=== PATIENT | female | born 1955 | race Caucasian/White ===

== ENCOUNTER 2020-01-08 21:08 | Inpatient (IN) ==
[2020-01-08] MEDS ORDERED: Naloxone 0.4 MG/ML INJ IVP PRN (23:37)
[2020-01-08] MEDS ORDERED: *HR* Heparin 5,000 UNIT/ML VIAL IVP PRN (23:39)
[2020-01-09 00:32] LABS: INR 0.9; Prothrombin Time 10.6 Seconds (9.4-12.1)
[2020-01-09 00:38] LABS: Basophils % 0.1 %; Eosinophils # 0.1 K/mcL (0.0-0.6); Eosinophils % 1.4 %; Hematocrit 40.8 % (35.3-44.9); Hemoglobin 12.9 g/dL (11.5-15.4); Immature Granulocytes % 0.2 % (0-4); Lymphocytes # 2.9 K/mcL (0.6-4.6); Lymphocytes % 33.9 %; Mean Corpuscular HGB Conc 31.6 g/dL (31.6-35.5); Mean Corpuscular Hemoglobin 28.9 pg (28.0-33.3); Mean Corpuscular Volume 91.3 fL (83.0-100.0); Mean Platelet Volume 11.8 fL (9.4-12.4); Monocytes # 0.5 K/mcL (0.0-1.3); Monocytes % 6.2 %; Platelet Count 188 K/mcL (140-400); Red Blood Count 4.47 M/mcL (3.82-4.97); Red Cell Distribution Width 13.3 % (11.5-14.5); Segmented Neutrophils % 58.2 %; White Blood Count 8.6 K/mcL (4.3-11.1)
[2020-01-09] MEDS: Heparin 25,000 UNIT/250 ML D5W 25,000 UNIT/250 ML IV.SOLN IVC SCH ×2 (00:39→23:28)
[2020-01-09 00:46] LABS: BUN/Creatinine Ratio 30 (6-26); Blood Urea Nitrogen 29 mg/dL (8-23); Calcium 9.2 mg/dL (8.6-10.3); Carbon Dioxide 27 mEq/L (23-29); Chloride 106 mEq/L (98-107); Glucose 117 mg/dL (70-105); Magnesium 1.9 mg/dL (1.6-2.6); Osmolality,Calculated 299 (280-300); Potassium 3.6 mEq/L (3.5-5.1); Sodium 141 mEq/L (136-145); eGFR For African Americans > 60 (> 60); eGFR For Non-African Americans 57 (> 60)
[2020-01-09] MEDS ORDERED: Acetaminophen IV 500 MG/50 ML INFUS..BTL IVPB ONE (01:45)
[2020-01-09] MEDS: *HR* Heparin 5,000 UNIT/ML VIAL IVP PRN ×2 (06:49→21:09)
[2020-01-09 08:29] LABS: Estimated Average Glucose 123 mg/dl
[2020-01-09] MEDS ORDERED: allopurinoL 100 MG TABLET PO PRN (09:00)
[2020-01-09] MEDS ORDERED: Furosemide 20 MG TABLET PO SCH (09:00)
[2020-01-09] MEDS: Aspirin Enteric Coated 81 MG Tablet PO SCH (09:28)
[2020-01-09] MEDS: Nicotine 7 MG PATCH.TD24 TD SCH (09:34)
[2020-01-09] MEDS: Cholecalciferol (D-3) 1,000 UNIT (25MCG) TABLET PO SCH (09:37)
[2020-01-09] MEDS ORDERED: Heparin 1,000 UNITS/500 mL 500 ML ONE (12:26)
[2020-01-09] MEDS ORDERED: ISOVUE-370 200 ML INFUS..BTL ONE ×2 (12:26→12:36)
[2020-01-09] MEDS ORDERED: Nitroglycerin 1,000 MCG/10 ML VIAL IV ONE (12:26)
[2020-01-09] MEDS ORDERED: *HR* Heparin 10,000 UNIT/10 ML VIAL ONE (12:26)
[2020-01-09] MEDS ORDERED: 0.9 % Sodium Chloride 2,000 ML ONE (12:26)
[2020-01-09] MEDS ORDERED: *HR* Midazolam HCl 2 MG/2 ML VIAL ONE (12:36)
[2020-01-09] MEDS ORDERED: Acetaminophen 325 MG TABLET PO PRN (13:38)
[2020-01-09] MEDS ORDERED: Clindamycin 900 MG/50 ML 900 MG/50 ML IV.SOLN IVPB ONE (15:41)
[2020-01-09] MEDS ORDERED: Perflutren Lipid Microsphere 1.3 ML in 0.9 % Sodium Chloride 8.7 ML IVP ONE (16:11)
[2020-01-09 16:22] LABS: Chol/HDL Ratio 4.2 (0-4.9)
[2020-01-09 18:21] LABS: Bilirubin,Urine Negative (Negative); Blood,Urine Negative (Negative); Clarity,Urine Clear (Clear); Color,Urine Yellow (Yellow); Glucose,Urine (UA) Normal (Normal); Ketones,Urine Negative (Negative); Leukocyte Esterase,Urine Negative (Negative); Nitrite,Urine Negative (Negative); Protein,Urine Negative (Neg-Trace); Specific Gravity,Urine > 1.030 (1.010-1.025); Urobilinogen,Urine Normal (Normal)
[2020-01-09] MEDS: Chlorhexidine Rinse 15 ML MOUTHWASH MM SCH (21:08)
[2020-01-10] MEDS ORDERED: Norepinephrine 4 MG in 0.9 % Sodium Chloride 250 ML IVC PRN (02:00)
[2020-01-10] MEDS ORDERED: Dextrose 50 % in Water (Vial) 30 ML, Sodium Bicarbonate 20 MEQ, Potassium Chloride 15 M... TH ONE (02:00)
[2020-01-10] MEDS ORDERED: Insulin Human Regular 100 UNIT in 0.9 % Sodium Chloride 100 ML IV PRN (02:00)
[2020-01-10] MEDS ORDERED: Dextrose 50 % in Water (Vial) 30 ML, Sodium Bicarbonate 20 MEQ, Lidocaine 1% 5 ML, Insu... TH ONE ×3 (02:00)
[2020-01-10] MEDS ORDERED: Heparin 15,000 UNIT in 0.9 % Sodium Chloride 500 ML IV ONE (02:00)
[2020-01-10 03:41] LABS: Hemoglobin 12.8 g/dL (11.5-15.4); Mean Corpuscular HGB Conc 31.2 g/dL (31.6-35.5); Mean Corpuscular Hemoglobin 29.3 pg (28.0-33.3); Mean Corpuscular Volume 93.8 fL (83.0-100.0); Mean Platelet Volume 11.8 fL (9.4-12.4); Platelet Count 173 K/mcL (140-400); Red Blood Count 4.37 M/mcL (3.82-4.97); Red Cell Distribution Width 13.3 % (11.5-14.5); White Blood Count 7.2 K/mcL (4.3-11.1)
[2020-01-10 04:00] LABS: BUN/Creatinine Ratio 28 (6-26); Blood Urea Nitrogen 22 mg/dL (8-23); Calcium 9.2 mg/dL (8.6-10.3); Carbon Dioxide 26 mEq/L (23-29); Chloride 108 mEq/L (98-107); Glucose 109 mg/dL (70-105); Osmolality,Calculated 298 (280-300); Potassium 3.8 mEq/L (3.5-5.1); Sodium 142 mEq/L (136-145); eGFR For African Americans > 60 (> 60); eGFR For Non-African Americans > 60 (> 60)
[2020-01-10] MEDS ORDERED: Clindamycin 900 MG/50 ML 900 MG/50 ML IV.SOLN IVPB ONE (05:00)
[2020-01-10] MEDS: Chlorhexidine Rinse 15 ML MOUTHWASH MM SCH ×2 (06:36→19:20)
[2020-01-10] MEDS ORDERED: NiCARdipine 2.5 MG/10 ML Syringe IVPB ONE ×2 (06:39→10:08)
[2020-01-10] MEDS ORDERED: *HR* Rocuronium Bromide 50 MG/5 ML VIAL ONE (06:45)
[2020-01-10] MEDS ORDERED: *HR* FentaNYL (PF) 1,000 MCG/20 ML VIAL ONE (06:45)
[2020-01-10] MEDS ORDERED: *HR* Midazolam HCl 5 MG/5 ML VIAL IVP ONE (06:45)
[2020-01-10] MEDS ORDERED: *HR* PHENYLEPHRINE 1,000 MCG/10 ML SYRINGE IVP ONE ×2 (06:45→10:48)
[2020-01-10] MEDS ORDERED: *HR* Etomidate 20 MG/10 ML AMPUL IVP ONE (06:48)
[2020-01-10] MEDS ORDERED: Famotidine 20 MG/2 ML VIAL ONE (06:48)
[2020-01-10] MEDS ORDERED: Protamine Sulfate 250 MG/25 ML VIAL IVP ONE (06:50)
[2020-01-10] MEDS ORDERED: Tranexamic Acid 1,000 MG/10 ML VIAL ONE ×2 (06:50→09:14)
[2020-01-10] MEDS ORDERED: Calcium Gluconate 1,000 MG/10 ML VIAL ONE (06:50)
[2020-01-10 08:13] LABS: ABG Base Excess 2 mEq/L (-2 to 3); ABG Chloride 107 mEq/L (98-107); ABG Glucose 107 mg/dL (60-95); ABG HCO3 29 mEq/L (21-27); ABG Ionized Calcium 1.26 mmol/L (1.15-1.35); ABG Oxygen Saturation 98 % (95-98); ABG PCO2 55 mmHg (35-45); ABG PH 7.33 pH Units (7.32-7.45); ABG PO2 108 mmHg (85-104); ABG TCO2 31 mEq/L (20-26)
[2020-01-10] MEDS ORDERED: *HR* Magnesium Sulfate 2 GM/50 ML PIGGYBACK IVPB ONE (09:19)
[2020-01-10] MEDS ORDERED: Lidocaine 2% Syringe 100 MG/5 ML IV ONE (09:19)
[2020-01-10] MEDS ORDERED: Tranexamic Acid 1,000 MG/10 ML VIAL IVP ONE (09:19)
[2020-01-10] MEDS ORDERED: Mannitol 25% vial 12.5 GM/50 ML VIAL IVP ONE (09:19)
[2020-01-10] MEDS ORDERED: *HR* Phenylephrine 10 MG/ML VIAL IVC ONE (09:19)
[2020-01-10] MEDS ORDERED: Albumin Human 25% 25 GM/100 ML IV.SOLN IV ONE (09:19)
[2020-01-10] MEDS ORDERED: *HR* Heparin 10,000 UNIT/10 ML VIAL IV ONE (09:19)
[2020-01-10 09:23] LABS: ABG Base Excess 0 mEq/L (-2 to 3); ABG Chloride 105 mEq/L (98-107); ABG Glucose 141 mg/dL (60-95); ABG HCO3 27 mEq/L (21-27); ABG Ionized Calcium 1.16 mmol/L (1.15-1.35); ABG Oxygen Saturation 91 % (95-98); ABG PCO2 52 mmHg (35-45); ABG PH 7.33 pH Units (7.32-7.45); ABG PO2 67 mmHg (85-104); ABG TCO2 29 mEq/L (20-26)
[2020-01-10 10:28] LABS: ABG Base Excess 3 mEq/L (-2 to 3); ABG Chloride 100 mEq/L (98-107); ABG Glucose 133 mg/dL (60-95); ABG HCO3 28 mEq/L (21-27); ABG Ionized Calcium 1.07 mmol/L (1.15-1.35); ABG Oxygen Saturation 100 % (95-98); ABG PCO2 43 mmHg (35-45); ABG PH 7.42 pH Units (7.32-7.45); ABG PO2 540 mmHg (85-104); ABG TCO2 30 mEq/L (20-26)
[2020-01-10] MEDS ORDERED: Albumin Human 5% 12.5 GM/250 ML IV.SOLN ONE (10:47)
[2020-01-10 11:02] LABS: ABG Base Excess -4 mEq/L (-2 to 3); ABG Chloride 103 mEq/L (98-107); ABG Glucose 95 mg/dL (60-95); ABG HCO3 24 mEq/L (21-27); ABG Ionized Calcium 1.35 mmol/L (1.15-1.35); ABG Oxygen Saturation 93 % (95-98); ABG PCO2 53 mmHg (35-45); ABG PH 7.26 pH Units (7.32-7.45); ABG PO2 77 mmHg (85-104); ABG TCO2 25 mEq/L (20-26)
[2020-01-10] MEDS ORDERED: Ondansetron 4 MG/2 ML VIAL IVP PRN (11:24)
[2020-01-10] MEDS ORDERED: *HR* Dextrose 50 % in Water (Syg) 50 ML SYRINGE IVP PRN (11:24)
[2020-01-10] MEDS ORDERED: Insulin Regular, Human 100 UNIT/ML IV PRN (11:24)
[2020-01-10] MEDS ORDERED: *HR* Promethazine 25 MG/ML VIAL IVP PRN (11:24)
[2020-01-10] MEDS: Norepinephrine 4 MG in 0.9 % Sodium Chloride 250 ML IVC SCH (11:30)
[2020-01-10] MEDS ORDERED: Albumin Human 5% 50.0 GM/1,000 ML IV.SOLN ONE (11:38)
[2020-01-10] MEDS: Albumin Human 5% 12.5 GM/250 ML IV.SOLN IVPB PRN ×2 (11:40→12:25)
[2020-01-10 11:54] LABS: ABG Base Excess -1 mEq/L (-2 to 3); ABG HCO3 26 mEq/L (21-27); ABG Oxygen Saturation 99 % (95-98); ABG PCO2 54 mmHg (35-45); ABG PO2 140 mmHg (85-104); ABG TCO2 28 mEq/L (20-26); Blood Gas Modality ASSIST CONTROL; Blood Gas VT 600 cc
[2020-01-10] MEDS ORDERED: niCARdipine 40 MG/200 ML MLS IVC ONE (12:11)
[2020-01-10 12:14] LABS: Basophils % 0.1 %; Eosinophils # 0.2 K/mcL (0.0-0.6); Eosinophils % 1.1 %; Hematocrit 32.9 % (35.3-44.9); Immature Granulocytes % 0.9 % (0-4); Lymphocytes # 2.4 K/mcL (0.6-4.6); Lymphocytes % 14.9 %; Mean Corpuscular Hemoglobin 29.7 pg (28.0-33.3); Mean Corpuscular Volume 95.6 fL (83.0-100.0); Mean Platelet Volume 11.5 fL (9.4-12.4); Monocytes # 1.1 K/mcL (0.0-1.3); Monocytes % 6.7 %; Neutrophils # 12.3 K/mcL (1.6-8.9); Platelet Count 150 K/mcL (140-400); Red Blood Count 3.44 M/mcL (3.82-4.97); Red Cell Distribution Width 13.2 % (11.5-14.5); Segmented Neutrophils % 76.3 %
[2020-01-10 12:21] LABS: Hemoglobin 10.2 g/dL (11.5-15.4)
[2020-01-10 12:22] LABS: INR 1.2
[2020-01-10 12:24] LABS: White Blood Count 16.1 K/mcL (4.3-11.1)
[2020-01-10 12:25] LABS: Activated Partial Thrombo Time 28.4 Seconds (26.0-36.0)
[2020-01-10 12:28] LABS: Prothrombin Time 13.4 Seconds (9.4-12.1)
[2020-01-10 12:31] LABS: BUN/Creatinine Ratio 22 (6-26); Blood Urea Nitrogen 19 mg/dL (8-23); Calcium 8.6 mg/dL (8.6-10.3); Carbon Dioxide 27 mEq/L (23-29); Chloride 109 mEq/L (98-107); Glucose 81 mg/dL (70-105); Magnesium 2.8 mg/dL (1.6-2.6); Osmolality,Calculated 297 (280-300); Potassium 4.1 mEq/L (3.5-5.1); Sodium 143 mEq/L (136-145); eGFR For African Americans > 60 (> 60); eGFR For Non-African Americans > 60 (> 60)
[2020-01-10] MEDS: *HR* FentaNYL (PF) 100 MCG/2 ML VIAL IVP PRN ×4 (12:44→21:36)
[2020-01-10] MEDS: *HR* OxyCODONE/APAP 5/325 TABLET PO PRN ×2 (12:44→18:38)
[2020-01-10] MEDS: Insulin Human Regular 100 UNIT in 0.9 % Sodium Chloride 100 ML IVC SCH (13:00)
[2020-01-10] MEDS: Furosemide 40 MG TABLET PO SCH (13:45)
[2020-01-10] MEDS: Aspirin Enteric Coated 81 MG Tablet PO SCH (13:45)
[2020-01-10] MEDS: Cholecalciferol (D-3) 1,000 UNIT (25MCG) TABLET PO SCH (13:45)
[2020-01-10] MEDS: Nicotine 7 MG PATCH.TD24 TD SCH (13:45)
[2020-01-10] MEDS: niCARdipine 20 MG/200 ML MLS IVC SCH ×4 (13:46→23:05)
[2020-01-10] MEDS: 0.9 % Sodium Chloride 1,000 ML IVC SCH (13:51)
[2020-01-10 14:58] LABS: ABG Base Excess 1 mEq/L (-2 to 3); ABG HCO3 27 mEq/L (21-27); ABG Oxygen Saturation 94 % (95-98); ABG PCO2 46 mmHg (35-45); ABG PH 7.37 pH Units (7.32-7.45); ABG PO2 75 mmHg (85-104); ABG TCO2 28 mEq/L (20-26); Blood Gas Modality ASSIST CONTROL; Blood Gas VT 600 cc
[2020-01-10] MEDS: Clindamycin 900 MG/50 ML 900 MG/50 ML IV.SOLN IVPB SCH (16:10)
[2020-01-10 19:55] LABS: ABG Base Excess 3 mEq/L (-2 to 3); ABG HCO3 28 mEq/L (21-27); ABG Oxygen Saturation 96 % (95-98); ABG PCO2 45 mmHg (35-45); ABG PO2 81 mmHg (85-104); ABG TCO2 29 mEq/L (20-26); Blood Gas Modality AF; Blood Gas VT 600 cc
[2020-01-10] MEDS: Dexmedetomidine HCl 400 MCG/100 ML MLS IVC SCH (22:11)
[2020-01-10 23:35] LABS: ABG Base Excess 2 mEq/L (-2 to 3); ABG HCO3 27 mEq/L (21-27); ABG Oxygen Saturation 95 % (95-98); ABG PCO2 43 mmHg (35-45); ABG PH 7.41 pH Units (7.32-7.45); ABG PO2 76 mmHg (85-104); ABG TCO2 28 mEq/L (20-26); Blood Gas Modality AF; Blood Gas VT 600 cc
[2020-01-11] MEDS: Clindamycin 900 MG/50 ML 900 MG/50 ML IV.SOLN IVPB SCH (00:06)
[2020-01-11] MEDS: *HR* OxyCODONE/APAP 5/325 TABLET PO PRN ×5 (00:06→22:20)
[2020-01-11] MEDS: *HR* FentaNYL (PF) 100 MCG/2 ML VIAL IVP PRN ×3 (02:57→22:36)
[2020-01-11 04:16] LABS: ABG Base Excess 3 mEq/L (-2 to 3); ABG HCO3 27 mEq/L (21-27); ABG Oxygen Saturation 89 % (95-98); ABG PCO2 39 mmHg (35-45); ABG PH 7.44 pH Units (7.32-7.45); ABG PO2 55 mmHg (85-104); ABG TCO2 28 mEq/L (20-26); Blood Gas Modality AF; Blood Gas VT 600 cc
[2020-01-11 04:20] LABS: Basophils % 0.1 %; Immature Granulocytes % 0.4 % (0-4); Lymphocytes % 12.5 %; Mean Corpuscular Hemoglobin 28.9 pg (28.0-33.3); Mean Corpuscular Volume 93.2 fL (83.0-100.0); Mean Platelet Volume 11.9 fL (9.4-12.4); Monocytes # 0.6 K/mcL (0.0-1.3); Monocytes % 8.3 %; Neutrophils # 6.1 K/mcL (1.6-8.9); Platelet Count 110 K/mcL (140-400); Red Blood Count 3.11 M/mcL (3.82-4.97); Red Cell Distribution Width 13.5 % (11.5-14.5); Segmented Neutrophils % 78.7 %
[2020-01-11] MEDS: 0.9 % Sodium Chloride 1,000 ML IVC SCH (04:22)
[2020-01-11 04:26] LABS: White Blood Count 7.7 K/mcL (4.3-11.1)
[2020-01-11 04:40] LABS: BUN/Creatinine Ratio 25 (6-26); Blood Urea Nitrogen 24 mg/dL (8-23); Calcium 8.3 mg/dL (8.6-10.3); Carbon Dioxide 26 mEq/L (23-29); Chloride 111 mEq/L (98-107); Glucose 124 mg/dL (70-105); Osmolality,Calculated 297 (280-300); Potassium 3.8 mEq/L (3.5-5.1); Sodium 141 mEq/L (136-145); eGFR For African Americans > 60 (> 60); eGFR For Non-African Americans 57 (> 60)
[2020-01-11] MEDS: niCARdipine 20 MG/200 ML MLS IVC SCH ×6 (05:16→19:54)
[2020-01-11] MEDS: Cholecalciferol (D-3) 1,000 UNIT (25MCG) TABLET PO SCH (07:33)
[2020-01-11] MEDS: Aspirin Enteric Coated 81 MG Tablet PO SCH (07:33)
[2020-01-11] MEDS: Dexmedetomidine HCl 400 MCG/100 ML MLS IVC SCH ×2 (07:37→23:12)
[2020-01-11] MEDS: Pantoprazole 40 MG VIAL IVP SCH (08:02)
[2020-01-11] MEDS: Chlorhexidine Rinse 15 ML MOUTHWASH MM SCH ×2 (08:02→19:30)
[2020-01-11] MEDS: Nicotine 7 MG PATCH.TD24 TD SCH (08:02)
[2020-01-11] MEDS: Furosemide 40 MG TABLET PO SCH (08:02)
[2020-01-11 08:03] LABS: ABG Base Excess 2 mEq/L (-2 to 3); ABG HCO3 26 mEq/L (21-27); ABG Oxygen Saturation 93 % (95-98); ABG PCO2 35 mmHg (35-45); ABG PH 7.48 pH Units (7.32-7.45); ABG PO2 63 mmHg (85-104); ABG TCO2 27 mEq/L (20-26); Blood Gas Modality ASSIST CONTROL; Blood Gas VT 600 cc
[2020-01-11] MEDS: Norepinephrine 4 MG in 0.9 % Sodium Chloride 250 ML IVC SCH (08:18)
[2020-01-11] MEDS ORDERED: Amiodarone Premix 360 MG/200 ML BAG IVC ONE (08:22)
[2020-01-11] MEDS ORDERED: Amiodarone Premix 150 MG/100 ML BAG IVPB ONE (08:22)
[2020-01-11] MEDS ORDERED: Furosemide 40 MG/4 ML VIAL IVP ONE (10:18)
[2020-01-11] MEDS: Insulin Human Regular 100 UNIT in 0.9 % Sodium Chloride 100 ML IVC SCH (11:50)
[2020-01-11] MEDS: Amiodarone Premix 360 MG/200 ML BAG IVC SCH (14:02)
[2020-01-11] MEDS: *HR* Heparin 5,000 UNIT/ML VIAL SQ SCH (17:01)
[2020-01-11 21:11] LABS: Hemoglobin 8.8 g/dL (11.5-15.4); Red Cell Distribution Width 13.7 % (11.5-14.5); Segmented Neutrophils % 79.3 %
[2020-01-11 21:13] LABS: Hematocrit 28.3 % (35.3-44.9); Immature Granulocytes % 0.5 % (0-4); Immature Platelets 6.9 % (1.1-6.1); Lymphocytes # 1.1 K/mcL (0.6-4.6); Lymphocytes % 11.5 %; Mean Corpuscular HGB Conc 31.1 g/dL (31.6-35.5); Mean Corpuscular Hemoglobin 29.2 pg (28.0-33.3); Monocytes # 0.8 K/mcL (0.0-1.3); Monocytes % 8.7 %; Neutrophils # 7.4 K/mcL (1.6-8.9); Red Blood Count 3.01 M/mcL (3.82-4.97); White Blood Count 9.3 K/mcL (4.3-11.1)
[2020-01-11 21:14] LABS: ABG Ionized Calcium 1.14 mmol/L (1.15-1.35)
[2020-01-11 21:14] LABS: Platelet Count 97 K/mcL (140-400)
[2020-01-11 21:31] LABS: Alanine Aminotransferase 11 Units/L (7-52); Albumin 3.4 g/dL (3.5-5.7); Albumin/Globulin Ratio 2.3 (1.1-2.2); Alkaline Phosphatase 45 Units/L (34-104); Aspartate Amino Transferase 27 Units/L (13-39); BUN/Creatinine Ratio 27 (6-26); Bilirubin,Total 0.4 mg/dL (0.3-1.0); Blood Urea Nitrogen 26 mg/dL (8-23); Calcium 8.3 mg/dL (8.6-10.3); Carbon Dioxide 24 mEq/L (23-29); Chloride 109 mEq/L (98-107); Globulin 1.5 g/dL (2.4-3.5); Glucose 131 mg/dL (70-105); Magnesium 2.2 mg/dL (1.6-2.6); Osmolality,Calculated 299 (280-300); Phosphorous 3.8 mg/dL (2.7-4.5); Potassium 3.4 mEq/L (3.5-5.1); Sodium 141 mEq/L (136-145); Total Protein 4.9 g/dL (6.4-8.9); eGFR For African Americans > 60 (> 60); eGFR For Non-African Americans 59 (> 60)
[2020-01-11] MEDS: Potassium Chloride 40 MEQ/200 ML BAG IVPB PRN ×2 (22:06→23:13)
[2020-01-11 22:11] LABS: ABG Base Excess 4 mEq/L (-2 to 3); ABG HCO3 28 mEq/L (21-27); ABG Oxygen Saturation 95 % (95-98); ABG PCO2 38 mmHg (35-45); ABG PH 7.46 pH Units (7.32-7.45); ABG PO2 69 mmHg (85-104); ABG TCO2 29 mEq/L (20-26); Blood Gas Modality AF; Blood Gas VT 460 cc
[2020-01-12] MEDS: Amiodarone Premix 360 MG/200 ML BAG IVC SCH (01:56)
[2020-01-12] MEDS ORDERED: Furosemide 40 MG/4 ML VIAL IVP ONE (02:41)
[2020-01-12] MEDS: niCARdipine 20 MG/200 ML MLS IVC SCH (02:43)
[2020-01-12] MEDS: *HR* FentaNYL (PF) 100 MCG/2 ML VIAL IVP PRN (02:52)
[2020-01-12] MEDS: Dexmedetomidine HCl 400 MCG/100 ML MLS IVC SCH ×2 (04:17→09:09)
[2020-01-12] MEDS: *HR* Heparin 5,000 UNIT/ML VIAL SQ SCH ×2 (04:17→17:02)
[2020-01-12 04:37] LABS: ABG Base Excess 3 mEq/L (-2 to 3); ABG HCO3 27 mEq/L (21-27); ABG Oxygen Saturation 93 % (95-98); ABG PCO2 40 mmHg (35-45); ABG PH 7.44 pH Units (7.32-7.45); ABG PO2 63 mmHg (85-104); ABG TCO2 29 mEq/L (20-26); Blood Gas Modality AF; Blood Gas VT 460 cc
[2020-01-12 04:43] LABS: Hemoglobin 8.7 g/dL (11.5-15.4); Red Cell Distribution Width 13.8 % (11.5-14.5)
[2020-01-12 04:45] LABS: Basophils % 0.1 %; Immature Granulocytes % 0.3 % (0-4); Immature Platelets 5.7 % (1.1-6.1); Lymphocytes # 0.9 K/mcL (0.6-4.6); Lymphocytes % 9.1 %; Mean Corpuscular HGB Conc 32.2 g/dL (31.6-35.5); Mean Corpuscular Hemoglobin 30.3 pg (28.0-33.3); Mean Corpuscular Volume 94.1 fL (83.0-100.0); Mean Platelet Volume 11.9 fL (9.4-12.4); Monocytes % 9.8 %; Neutrophils # 8.2 K/mcL (1.6-8.9); Red Blood Count 2.87 M/mcL (3.82-4.97); Segmented Neutrophils % 80.7 %; White Blood Count 10.1 K/mcL (4.3-11.1)
[2020-01-12 04:46] LABS: Platelet Count 96 K/mcL (140-400)
[2020-01-12 05:01] LABS: BUN/Creatinine Ratio 29 (6-26); Blood Urea Nitrogen 29 mg/dL (8-23); Calcium 8.6 mg/dL (8.6-10.3); Carbon Dioxide 26 mEq/L (23-29); Chloride 109 mEq/L (98-107); Glucose 134 mg/dL (70-105); Osmolality,Calculated 302 (280-300); Potassium 3.7 mEq/L (3.5-5.1); Sodium 142 mEq/L (136-145); eGFR For African Americans > 60 (> 60); eGFR For Non-African Americans 55 (> 60)
[2020-01-12] MEDS: Cholecalciferol (D-3) 1,000 UNIT (25MCG) TABLET PO SCH (07:16)
[2020-01-12] MEDS: Pantoprazole 40 MG VIAL IVP SCH (09:10)
[2020-01-12] MEDS: Nicotine 7 MG PATCH.TD24 TD SCH (09:10)
[2020-01-12] MEDS: Furosemide 40 MG TABLET PO SCH (09:10)
[2020-01-12] MEDS: Chlorhexidine Rinse 15 ML MOUTHWASH MM SCH (09:10)
[2020-01-12] MEDS: *HR* OxyCODONE/APAP 5/325 TABLET PO PRN ×3 (09:14→20:05)
[2020-01-12] MEDS ORDERED: *HR* Dextrose 50 % in Water (Syg) 50 ML SYRINGE IVP PRN (09:41)
[2020-01-12] MEDS ORDERED: Dextrose Gel 15 GM/37.5 ML TUBE PO PRN ×2 (09:41)
[2020-01-12] MEDS ORDERED: D5% in Water 1,000 ML IVC PRN (09:41)
[2020-01-12] MEDS ORDERED: *HR* Amiodarone 200 MG TABLET PO SCH (10:15)
[2020-01-12] MEDS: Insulin LISPRO 300 UNITS/3 ML VIAL SQ SCH ×3 (11:31→20:01)
[2020-01-12] MEDS: Budesonide/Formoterol 160/4.5 1 PUFF INH IH SCH ×2 (15:22→20:05)
[2020-01-12] MEDS: Norepinephrine 4 MG in 0.9 % Sodium Chloride 250 ML IVC SCH (20:00)
[2020-01-12] MEDS: Furosemide 20 MG/2 ML VIAL IVP SCH (20:05)
[2020-01-12] MEDS: *HR* Amiodarone 200 MG TABLET PO SCH (21:06)
[2020-01-13] MEDS: *HR* OxyCODONE/APAP 5/325 TABLET PO PRN (03:51)
[2020-01-13] MEDS: *HR* Heparin 5,000 UNIT/ML VIAL SQ SCH ×2 (05:17→16:49)
[2020-01-13 05:40] LABS: Basophils % 0.1 %; Eosinophils % 0.2 %; Hematocrit 31.6 % (35.3-44.9); Hemoglobin 9.7 g/dL (11.5-15.4); Immature Granulocytes % 0.4 % (0-4); Lymphocytes # 1.5 K/mcL (0.6-4.6); Lymphocytes % 13.1 %; Mean Corpuscular HGB Conc 30.7 g/dL (31.6-35.5); Mean Corpuscular Hemoglobin 29.3 pg (28.0-33.3); Mean Corpuscular Volume 95.5 fL (83.0-100.0); Mean Platelet Volume 12.4 fL (9.4-12.4); Monocytes % 8.7 %; Neutrophils # 9.1 K/mcL (1.6-8.9); Platelet Count 130 K/mcL (140-400); Red Blood Count 3.31 M/mcL (3.82-4.97); Red Cell Distribution Width 13.8 % (11.5-14.5); Segmented Neutrophils % 77.5 %; White Blood Count 11.8 K/mcL (4.3-11.1)
[2020-01-13 05:45] LABS: BUN/Creatinine Ratio 37 (6-26); Blood Urea Nitrogen 36 mg/dL (8-23); Calcium 8.6 mg/dL (8.6-10.3); Carbon Dioxide 25 mEq/L (23-29); Chloride 107 mEq/L (98-107); Glucose 127 mg/dL (70-105); Osmolality,Calculated 300 (280-300); Potassium 3.6 mEq/L (3.5-5.1); Sodium 140 mEq/L (136-145); eGFR For African Americans > 60 (> 60); eGFR For Non-African Americans 57 (> 60)
[2020-01-13] MEDS: Budesonide/Formoterol 160/4.5 1 PUFF INH IH SCH ×2 (07:21→19:39)
[2020-01-13] MEDS: Insulin LISPRO 300 UNITS/3 ML VIAL SQ SCH ×4 (08:12→20:54)
[2020-01-13] MEDS: Pantoprazole 40 MG VIAL IVP SCH (08:36)
[2020-01-13] MEDS: Cholecalciferol (D-3) 1,000 UNIT (25MCG) TABLET PO SCH (08:36)
[2020-01-13] MEDS: Nicotine 7 MG PATCH.TD24 TD SCH (08:36)
[2020-01-13] MEDS: Furosemide 20 MG/2 ML VIAL IVP SCH ×2 (08:36→21:30)
[2020-01-13] MEDS: *HR* Amiodarone 200 MG TABLET PO SCH (08:36)
[2020-01-13] MEDS ORDERED: *HR* Amiodarone 200 MG TABLET PO SCH (09:00)
[2020-01-13] MEDS ORDERED: *HR* Etomidate 20 MG/10 ML AMPUL IVP ONE (09:15)
[2020-01-13] MEDS ORDERED: *HR* Midazolam HCl 5 MG/5 ML VIAL IVP ONE ×2 (09:15→12:40)
[2020-01-13] MEDS ORDERED: *HR* Propofol 200 MG/20 ML VIAL IVP ONE (09:15)
[2020-01-13] MEDS ORDERED: Lidocaine 2% Syringe 100 MG/5 ML IV ONE (09:15)
[2020-01-13] MEDS ORDERED: *HR* FentaNYL (PF) 100 MCG/2 ML VIAL IVP ONE (11:18)
[2020-01-13] MEDS ORDERED: Lidocaine 2% Syringe 100 MG/5 ML ONE (11:21)
[2020-01-13] MEDS ORDERED: Artificial Tears SOLN 15 ML BOTTLE BOTH EYES PRN (11:40)
[2020-01-13] MEDS: Ipratropium/Albuterol Neb 3 ML IH SCH ×4 (11:45→23:13)
[2020-01-13] MEDS: Dexmedetomidine HCl 400 MCG/100 ML MLS IVC SCH ×3 (12:01→21:34)
[2020-01-13] MEDS: Norepinephrine 4 MG in 0.9 % Sodium Chloride 250 ML IVC SCH ×3 (12:02→21:46)
[2020-01-13 12:13] LABS: ABG Base Excess 6 mEq/L (-2 to 3); ABG HCO3 31 mEq/L (21-27); ABG Oxygen Saturation 86 % (95-98); ABG PCO2 47 mmHg (35-45); ABG PH 7.42 pH Units (7.32-7.45); ABG PO2 52 mmHg (85-104); ABG TCO2 32 mEq/L (20-26); Blood Gas Modality ASSIST CONTROL; Blood Gas VT 400 cc
[2020-01-13] MEDS: FentaNYL (PF) 1,000 MCG/100 ML IV.SOLN IVC SCH ×2 (12:19→20:29)
[2020-01-13] MEDS: Chlorhexidine Rinse 15 ML MOUTHWASH MM SCH ×2 (12:21→21:42)
[2020-01-13] MEDS: Artificial Tears SOLN 15 ML BOTTLE BOTH EYES SCH ×3 (12:21→21:31)
[2020-01-13] MEDS ORDERED: methylPREDNISolone 125 MG/2 ML VIAL IVP ONE (13:12)
[2020-01-13] MEDS ORDERED: Ringers Solution, Lactated 1,000 ML ONE (13:47)
[2020-01-13] MEDS ORDERED: Ringers Solution, Lactated 500 ML IVC ONE (14:00)
[2020-01-13 15:33] LABS: Appearance of Body Fluid Cloudy (Clear); Volume of Body Fluid 10 mL
[2020-01-13] MEDS: levoFLOXacin 750 MG/150 ML 750 MG/150 ML BAG IVPB SCH (15:40)
[2020-01-13] MEDS: Docusate Oral Soln 100 MG/10 ML UDC GTUBE SCH (21:30)
[2020-01-13 22:24] LABS: ABG Base Excess 1 mEq/L (-2 to 3); ABG HCO3 26 mEq/L (21-27); ABG Oxygen Saturation 85 % (95-98); ABG PCO2 40 mmHg (35-45); ABG PH 7.42 pH Units (7.32-7.45); ABG PO2 49 mmHg (85-104); ABG TCO2 27 mEq/L (20-26); Blood Gas Modality VC; Blood Gas VT 450 cc
[2020-01-13] MEDS ORDERED: *HR* Vecuronium 10 MG VIAL IVP ONE (23:06)
[2020-01-14] MEDS: Cisatracurium 200 MG in 0.9 % Sodium Chloride 180 ML IVC SCH ×2 (00:07→23:52)
[2020-01-14] MEDS: Artificial Tears SOLN 15 ML BOTTLE BOTH EYES SCH ×7 (00:12→23:53)
[2020-01-14] MEDS: Ipratropium/Albuterol Neb 3 ML IH SCH ×6 (03:26→23:18)
[2020-01-14] MEDS: FentaNYL (PF) 1,000 MCG/100 ML IV.SOLN IVC SCH ×2 (04:09→12:09)
[2020-01-14 04:27] LABS: ABG Base Excess 0 mEq/L (-2 to 3); ABG HCO3 29 mEq/L (21-27); ABG Oxygen Saturation 92 % (95-98); ABG PCO2 73 mmHg (35-45); ABG PH 7.21 pH Units (7.32-7.45); ABG PO2 79 mmHg (85-104); ABG TCO2 31 mEq/L (20-26); Blood Gas Modality VC; Blood Gas VT 450 cc
[2020-01-14] MEDS: Norepinephrine 4 MG in 0.9 % Sodium Chloride 250 ML IVC SCH (04:48)
[2020-01-14] MEDS: *HR* Heparin 5,000 UNIT/ML VIAL SQ SCH ×2 (05:28→17:36)
[2020-01-14 05:48] LABS: Hematocrit 31.3 % (35.3-44.9); Hemoglobin 9.7 g/dL (11.5-15.4); Immature Granulocytes % 0.7 % (0-4); Lymphocytes # 0.6 K/mcL (0.6-4.6); Lymphocytes % 4.2 %; Mean Corpuscular Hemoglobin 29.8 pg (28.0-33.3); Monocytes # 0.4 K/mcL (0.0-1.3); Monocytes % 2.7 %; Platelet Count 228 K/mcL (140-400); Red Blood Count 3.26 M/mcL (3.82-4.97); Red Cell Distribution Width 13.5 % (11.5-14.5); Segmented Neutrophils % 92.4 %
[2020-01-14 06:11] LABS: BUN/Creatinine Ratio 44 (6-26); Blood Urea Nitrogen 47 mg/dL (8-23); Calcium 8.6 mg/dL (8.6-10.3); Carbon Dioxide 25 mEq/L (23-29); Chloride 107 mEq/L (98-107); Glucose 174 mg/dL (70-105); Osmolality,Calculated 308 (280-300); Sodium 141 mEq/L (136-145); eGFR For African Americans > 60 (> 60); eGFR For Non-African Americans 52 (> 60)
[2020-01-14] MEDS: Budesonide/Formoterol 160/4.5 1 PUFF INH IH SCH ×2 (07:44→19:35)
[2020-01-14] MEDS: Insulin LISPRO 300 UNITS/3 ML VIAL SQ SCH ×4 (07:57→23:53)
[2020-01-14] MEDS: Aspirin 81 MG TAB.CHEW GTUBE SCH (08:05)
[2020-01-14] MEDS: Cholecalciferol (D-3) 1,000 UNIT (25MCG) TABLET PO SCH (08:05)
[2020-01-14] MEDS: methylPREDNISolone 125 MG/2 ML VIAL IVP SCH ×3 (08:06→23:57)
[2020-01-14] MEDS: Pantoprazole 40 MG VIAL IVP SCH (08:06)
[2020-01-14] MEDS: Chlorhexidine Rinse 15 ML MOUTHWASH MM SCH ×2 (08:06→19:53)
[2020-01-14] MEDS: Furosemide 20 MG/2 ML VIAL IVP SCH ×2 (08:06→19:54)
[2020-01-14] MEDS: Nicotine 7 MG PATCH.TD24 TD SCH (08:06)
[2020-01-14] MEDS: Docusate Oral Soln 100 MG/10 ML UDC GTUBE SCH ×2 (08:06→19:53)
[2020-01-14] MEDS: levoFLOXacin 750 MG/150 ML 750 MG/150 ML BAG IVPB SCH (08:07)
[2020-01-14] MEDS ORDERED: *HR* Vecuronium 10 MG VIAL IVP PRN (09:37)
[2020-01-14] MEDS ORDERED: Amiodarone Premix 360 MG/200 ML BAG IVC ONE (20:30)
[2020-01-14] MEDS: FentaNYL (PF) 2,500 MCG/50 ML IV.SOLN IVC SCH (20:47)
[2020-01-15] MEDS: Amiodarone Premix 360 MG/200 ML BAG IVC SCH ×2 (02:01→13:41)
[2020-01-15] MEDS: Ipratropium/Albuterol Neb 3 ML IH SCH ×6 (03:19→23:31)
[2020-01-15 04:28] LABS: ABG Base Excess 2 mEq/L (-2 to 3); ABG HCO3 28 mEq/L (21-27); ABG Oxygen Saturation 96 % (95-98); ABG PCO2 51 mmHg (35-45); ABG PH 7.35 pH Units (7.32-7.45); ABG PO2 86 mmHg (85-104); ABG TCO2 30 mEq/L (20-26); Blood Gas Modality ASSIST CONTROL; Blood Gas VT 450 cc
[2020-01-15] MEDS: Artificial Tears SOLN 15 ML BOTTLE BOTH EYES SCH ×6 (05:04→23:24)
[2020-01-15] MEDS: *HR* Heparin 5,000 UNIT/ML VIAL SQ SCH ×2 (05:04→17:00)
[2020-01-15] MEDS: Insulin LISPRO 300 UNITS/3 ML VIAL SQ SCH ×4 (05:59→23:24)
[2020-01-15 06:09] LABS: Basophils % 0.1 %; Hematocrit 26.9 % (35.3-44.9); Hemoglobin 8.2 g/dL (11.5-15.4); Immature Granulocytes % 0.6 % (0-4); Lymphocytes # 0.4 K/mcL (0.6-4.6); Lymphocytes % 3.4 %; Mean Corpuscular HGB Conc 30.5 g/dL (31.6-35.5); Mean Corpuscular Hemoglobin 29.3 pg (28.0-33.3); Mean Corpuscular Volume 96.1 fL (83.0-100.0); Mean Platelet Volume 11.5 fL (9.4-12.4); Monocytes # 0.6 K/mcL (0.0-1.3); Monocytes % 5.2 %; Neutrophils # 11.1 K/mcL (1.6-8.9); Platelet Count 179 K/mcL (140-400); Red Cell Distribution Width 13.6 % (11.5-14.5); Segmented Neutrophils % 90.7 %; White Blood Count 12.3 K/mcL (4.3-11.1)
[2020-01-15 06:30] LABS: Calcium 8.6 mg/dL (8.6-10.3); Potassium 3.5 mEq/L (3.5-5.1)
[2020-01-15] MEDS: FentaNYL (PF) 2,500 MCG/50 ML IV.SOLN IVC SCH ×2 (07:06→20:08)
[2020-01-15] MEDS: Budesonide/Formoterol 160/4.5 1 PUFF INH IH SCH ×2 (07:20→19:54)
[2020-01-15] MEDS: methylPREDNISolone 125 MG/2 ML VIAL IVP SCH ×2 (07:48→17:00)
[2020-01-15] MEDS: Pantoprazole 40 MG VIAL IVP SCH (07:48)
[2020-01-15] MEDS: Furosemide 20 MG/2 ML VIAL IVP SCH ×2 (07:49→20:08)
[2020-01-15] MEDS: Cholecalciferol (D-3) 1,000 UNIT (25MCG) TABLET PO SCH (07:49)
[2020-01-15] MEDS: Docusate Oral Soln 100 MG/10 ML UDC GTUBE SCH ×2 (07:49→20:08)
[2020-01-15] MEDS: Chlorhexidine Rinse 15 ML MOUTHWASH MM SCH ×2 (07:49→20:08)
[2020-01-15] MEDS: Aspirin 81 MG TAB.CHEW GTUBE SCH (07:49)
[2020-01-15] MEDS: levoFLOXacin 750 MG/150 ML 750 MG/150 ML BAG IVPB SCH (07:49)
[2020-01-15] MEDS: Nicotine 7 MG PATCH.TD24 TD SCH (07:50)
[2020-01-15] MEDS: Dexmedetomidine HCl 400 MCG/100 ML MLS IVC SCH (11:09)
[2020-01-15 14:21] LABS: Hematocrit 26.2 % (35.3-44.9)
[2020-01-16] MEDS: Amiodarone Premix 360 MG/200 ML BAG IVC SCH ×2 (00:50→12:49)
[2020-01-16] MEDS: Ipratropium/Albuterol Neb 3 ML IH SCH ×6 (03:14→23:25)
[2020-01-16] MEDS: Artificial Tears SOLN 15 ML BOTTLE BOTH EYES SCH ×6 (03:28→23:57)
[2020-01-16] MEDS: Dexmedetomidine HCl 400 MCG/100 ML MLS IVC SCH ×2 (03:28→20:21)
[2020-01-16 04:27] LABS: ABG Base Excess 3 mEq/L (-2 to 3); ABG HCO3 30 mEq/L (21-27); ABG Oxygen Saturation 87 % (95-98); ABG PCO2 59 mmHg (35-45); ABG PH 7.32 pH Units (7.32-7.45); ABG PO2 59 mmHg (85-104); ABG TCO2 32 mEq/L (20-26); Blood Gas Modality AF; Blood Gas VT 450 cc
[2020-01-16 05:16] LABS: Basophils % 0.1 %; Hemoglobin 8.3 g/dL (11.5-15.4); Immature Granulocytes % 0.7 % (0-4); Lymphocytes # 0.4 K/mcL (0.6-4.6); Lymphocytes % 2.8 %; Mean Corpuscular HGB Conc 30.7 g/dL (31.6-35.5); Mean Corpuscular Hemoglobin 29.7 pg (28.0-33.3); Mean Corpuscular Volume 96.8 fL (83.0-100.0); Mean Platelet Volume 11.1 fL (9.4-12.4); Monocytes # 1.3 K/mcL (0.0-1.3); Monocytes % 8.5 %; Neutrophils # 13.7 K/mcL (1.6-8.9); Platelet Count 200 K/mcL (140-400); Red Blood Count 2.79 M/mcL (3.82-4.97); Red Cell Distribution Width 13.6 % (11.5-14.5); Segmented Neutrophils % 87.9 %; White Blood Count 15.6 K/mcL (4.3-11.1)
[2020-01-16 05:35] LABS: Calcium 8.5 mg/dL (8.6-10.3); Potassium 3.8 mEq/L (3.5-5.1)
[2020-01-16] MEDS: methylPREDNISolone 125 MG/2 ML VIAL IVP SCH ×2 (06:26→18:05)
[2020-01-16] MEDS: *HR* Heparin 5,000 UNIT/ML VIAL SQ SCH ×2 (06:26→18:04)
[2020-01-16] MEDS: Insulin LISPRO 300 UNITS/3 ML VIAL SQ SCH ×3 (06:27→18:06)
[2020-01-16] MEDS: Budesonide/Formoterol 160/4.5 1 PUFF INH IH SCH ×2 (07:23→19:34)
[2020-01-16] MEDS: Norepinephrine 4 MG in 0.9 % Sodium Chloride 250 ML IVC SCH (08:00)
[2020-01-16] MEDS: Docusate Oral Soln 100 MG/10 ML UDC GTUBE SCH ×2 (08:09→20:25)
[2020-01-16] MEDS: Furosemide 40 MG/4 ML VIAL IVP SCH ×2 (08:09→20:26)
[2020-01-16] MEDS: Pantoprazole 40 MG VIAL IVP SCH (08:09)
[2020-01-16] MEDS: levoFLOXacin 750 MG/150 ML 750 MG/150 ML BAG IVPB SCH (08:09)
[2020-01-16] MEDS: Cholecalciferol (D-3) 1,000 UNIT (25MCG) TABLET PO SCH (08:10)
[2020-01-16] MEDS: Chlorhexidine Rinse 15 ML MOUTHWASH MM SCH ×2 (08:10→20:25)
[2020-01-16] MEDS: Aspirin 81 MG TAB.CHEW GTUBE SCH (08:10)
[2020-01-16] MEDS: Nicotine 7 MG PATCH.TD24 TD SCH (08:10)
[2020-01-16] MEDS: FentaNYL (PF) 2,500 MCG/50 ML IV.SOLN IVC SCH (11:09)
[2020-01-16] MEDS ORDERED: Bisacodyl 10 MG RECTAL SUPPOSITORY RC ONE (12:15)
[2020-01-16] MEDS ORDERED: Perflutren Lipid Microsphere 1.3 ML in 0.9 % Sodium Chloride 8.7 ML IVP ONE (13:18)
[2020-01-16] MEDS: Cefepime HCl 2,000 MG in Water for inj. (sterile) 20 ML IVP SCH ×2 (14:31→23:57)
[2020-01-16] MEDS: *HR* Amiodarone 200 MG TABLET PO SCH ×2 (14:31→20:26)
[2020-01-16] MEDS: Insulin DETEMIR 100 UNIT/ML X5UNITS SQ SCH (14:32)
[2020-01-16] MEDS ORDERED: *HR* Vecuronium 10 MG VIAL IVP ONE (17:08)
[2020-01-16 17:58] LABS: RBC,Pleural Fluid 17000 RBC/mcL
[2020-01-16 18:03] LABS: ABG Base Excess 5 mEq/L (-2 to 3); ABG HCO3 32 mEq/L (21-27); ABG Oxygen Saturation 95 % (95-98); ABG PCO2 59 mmHg (35-45); ABG PH 7.34 pH Units (7.32-7.45); ABG PO2 84 mmHg (85-104); ABG TCO2 34 mEq/L (20-26); Blood Gas Modality AF; Blood Gas VT 500 cc
[2020-01-16 18:19] LABS: Glucose,Pleural Fluid 147 mg/dL (No Ref Range); LDH,Pleural Fluid 487 Units/L (No Ref Range); Total Protein,Pleural Fluid < 3.0 g/dL
[2020-01-16 18:49] LABS: Appearance of Pleural Fl Cloudy (Clear); Basophils,Pleural Fluid 0 %
[2020-01-16 19:25] LABS: Albumin 2.9 g/dL (3.5-5.7); Albumin/Globulin Ratio 1.1 (1.1-2.2); Bilirubin,Direct 0.1 mg/dL (0.0-0.2); Bilirubin,Indirect 0.2 mg/dL (0.0-1.0); Bilirubin,Total 0.3 mg/dL (0.3-1.0); Globulin 2.6 g/dL (2.4-3.5); Total Protein 5.5 g/dL (6.4-8.9)
[2020-01-17] MEDS: Norepinephrine 4 MG in 0.9 % Sodium Chloride 250 ML IVC SCH (00:06)
[2020-01-17] MEDS: Insulin LISPRO 300 UNITS/3 ML VIAL SQ SCH ×4 (00:17→16:45)
[2020-01-17] MEDS: FentaNYL (PF) 2,500 MCG/50 ML IV.SOLN IVC SCH (01:35)
[2020-01-17] MEDS: Ipratropium/Albuterol Neb 3 ML IH SCH ×6 (03:17→23:25)
[2020-01-17 03:59] LABS: Basophils % 0.1 %; Hematocrit 27.2 % (35.3-44.9); Hemoglobin 8.2 g/dL (11.5-15.4); Immature Granulocytes % 0.6 % (0-4); Lymphocytes # 0.6 K/mcL (0.6-4.6); Lymphocytes % 4.5 %; Mean Corpuscular HGB Conc 30.1 g/dL (31.6-35.5); Mean Corpuscular Hemoglobin 29.4 pg (28.0-33.3); Mean Corpuscular Volume 97.5 fL (83.0-100.0); Mean Platelet Volume 10.9 fL (9.4-12.4); Monocytes % 7.9 %; Neutrophils # 10.9 K/mcL (1.6-8.9); Platelet Count 215 K/mcL (140-400); Red Blood Count 2.79 M/mcL (3.82-4.97); Red Cell Distribution Width 13.9 % (11.5-14.5); Segmented Neutrophils % 86.9 %; White Blood Count 12.6 K/mcL (4.3-11.1)
[2020-01-17] MEDS: Artificial Tears SOLN 15 ML BOTTLE BOTH EYES SCH ×5 (04:07→20:11)
[2020-01-17 04:16] LABS: Calcium 8.5 mg/dL (8.6-10.3); Potassium 4.4 mEq/L (3.5-5.1)
[2020-01-17 04:33] LABS: ABG Base Excess 5 mEq/L (-2 to 3); ABG HCO3 32 mEq/L (21-27); ABG Oxygen Saturation 93 % (95-98); ABG PCO2 66 mmHg (35-45); ABG PH 7.29 pH Units (7.32-7.45); ABG PO2 79 mmHg (85-104); ABG TCO2 34 mEq/L (20-26); Blood Gas Modality AF; Blood Gas VT 500 cc
[2020-01-17] MEDS: *HR* Heparin 5,000 UNIT/ML VIAL SQ SCH ×2 (05:06→16:41)
[2020-01-17] MEDS: methylPREDNISolone 125 MG/2 ML VIAL IVP SCH (05:06)
[2020-01-17] MEDS: Budesonide/Formoterol 160/4.5 1 PUFF INH IH SCH ×2 (07:30→19:48)
[2020-01-17] MEDS: Aspirin 81 MG TAB.CHEW GTUBE SCH (07:51)
[2020-01-17] MEDS: Furosemide 40 MG/4 ML VIAL IVP SCH ×2 (07:51→20:11)
[2020-01-17] MEDS: Docusate Oral Soln 100 MG/10 ML UDC GTUBE SCH ×2 (07:51→20:11)
[2020-01-17] MEDS: Cholecalciferol (D-3) 1,000 UNIT (25MCG) TABLET PO SCH (07:51)
[2020-01-17] MEDS: Pantoprazole 40 MG VIAL IVP SCH (07:51)
[2020-01-17] MEDS: Nicotine 7 MG PATCH.TD24 TD SCH (07:51)
[2020-01-17] MEDS: *HR* Amiodarone 200 MG TABLET PO SCH (07:51)
[2020-01-17] MEDS: Chlorhexidine Rinse 15 ML MOUTHWASH MM SCH ×2 (07:51→20:10)
[2020-01-17] MEDS: Insulin DETEMIR 100 UNIT/ML X5UNITS SQ SCH (07:52)
[2020-01-17] MEDS: Cefepime HCl 2,000 MG in Water for inj. (sterile) 20 ML IVP SCH (12:32)
[2020-01-17] MEDS ORDERED: *HR* Metoprolol 5 MG/5 ML VIAL IVP ONE (14:07)
[2020-01-17] MEDS ORDERED: Amiodarone Premix 150 MG/100 ML BAG IVPB ONE (16:11)
[2020-01-17 16:24] LABS: Appearance of Body Fluid Cloudy (Clear); Volume of Body Fluid 10 mL
[2020-01-17] MEDS: MethylPREDNISolone 40 MG/ML VIAL IVP SCH (16:41)
[2020-01-17] MEDS: Amiodarone Premix 360 MG/200 ML BAG IVC SCH (17:03)
[2020-01-17 20:30] LABS: Calcium 8.8 mg/dL (8.6-10.3); Magnesium 3.6 mg/dL (1.6-2.6); Phosphorous 4.4 mg/dL (2.7-4.5); Potassium 4.4 mEq/L (3.5-5.1)
[2020-01-18] MEDS: Insulin LISPRO 300 UNITS/3 ML VIAL SQ SCH ×5 (00:13→23:27)
[2020-01-18] MEDS: Artificial Tears SOLN 15 ML BOTTLE BOTH EYES SCH ×7 (00:13→23:24)
[2020-01-18] MEDS: Cefepime HCl 2,000 MG in Water for inj. (sterile) 20 ML IVP SCH ×2 (00:17→12:33)
[2020-01-18] MEDS: Ipratropium/Albuterol Neb 3 ML IH SCH ×5 (03:46→20:25)
[2020-01-18 04:31] LABS: ABG Base Excess 7 mEq/L (-2 to 3); ABG HCO3 34 mEq/L (21-27); ABG Oxygen Saturation 94 % (95-98); ABG PCO2 59 mmHg (35-45); ABG PH 7.37 pH Units (7.32-7.45); ABG PO2 77 mmHg (85-104); ABG TCO2 36 mEq/L (20-26); Blood Gas Modality CPAP/PS; Blood Gas Pressure Support 10 cm H2O
[2020-01-18] MEDS: Amiodarone Premix 360 MG/200 ML BAG IVC SCH ×2 (04:53→17:23)
[2020-01-18] MEDS: MethylPREDNISolone 40 MG/ML VIAL IVP SCH ×2 (04:54→17:23)
[2020-01-18] MEDS: *HR* Heparin 5,000 UNIT/ML VIAL SQ SCH ×2 (04:54→17:23)
[2020-01-18 05:54] LABS: Basophils % 0.1 %; Eosinophils % 0.1 %; Monocytes % 7.6 %
[2020-01-18 05:56] LABS: Hematocrit 31.5 % (35.3-44.9); Hemoglobin 9.7 g/dL (11.5-15.4); Immature Granulocytes % 1.2 % (0-4); Immature Platelets 5.2 % (1.1-6.1); Lymphocytes % 6.5 %; Mean Corpuscular HGB Conc 30.8 g/dL (31.6-35.5); Mean Corpuscular Hemoglobin 29.2 pg (28.0-33.3); Mean Corpuscular Volume 94.9 fL (83.0-100.0); Mean Platelet Volume 11.4 fL (9.4-12.4); Monocytes # 1.1 K/mcL (0.0-1.3); Neutrophils # 12.7 K/mcL (1.6-8.9); Platelet Count 213 K/mcL (140-400); Red Blood Count 3.32 M/mcL (3.82-4.97); Segmented Neutrophils % 84.5 %
[2020-01-18 06:11] LABS: Calcium 8.8 mg/dL (8.6-10.3); Magnesium 3.4 mg/dL (1.6-2.6); Phosphorous 4.2 mg/dL (2.7-4.5); Potassium 4.3 mEq/L (3.5-5.1)
[2020-01-18 06:19] LABS: INR 1.1; Prothrombin Time 12.2 Seconds (9.4-12.1)
[2020-01-18] MEDS: Budesonide/Formoterol 160/4.5 1 PUFF INH IH SCH ×2 (07:25→20:25)
[2020-01-18] MEDS: Cholecalciferol (D-3) 1,000 UNIT (25MCG) TABLET PO SCH (07:54)
[2020-01-18] MEDS: Aspirin 81 MG TAB.CHEW GTUBE SCH (07:54)
[2020-01-18] MEDS: Docusate Oral Soln 100 MG/10 ML UDC GTUBE SCH ×2 (07:54→20:11)
[2020-01-18] MEDS: Furosemide 40 MG/4 ML VIAL IVP SCH ×3 (07:54→20:11)
[2020-01-18] MEDS: Chlorhexidine Rinse 15 ML MOUTHWASH MM SCH ×2 (07:54→20:11)
[2020-01-18] MEDS: Nicotine 7 MG PATCH.TD24 TD SCH (07:54)
[2020-01-18] MEDS: Pantoprazole 40 MG VIAL IVP SCH (07:55)
[2020-01-18] MEDS: Insulin DETEMIR 100 UNIT/ML X5UNITS SQ SCH (08:01)
[2020-01-18] MEDS ORDERED: levoFLOXacin 750 MG/150 ML 750 MG/150 ML BAG IVPB SCH (09:00)
[2020-01-18] MEDS: Albumin 25% 25gram/100mL 25 GM/100 ML IV.SOLN IVPB SCH ×2 (14:52→23:24)
[2020-01-18] MEDS: *HR* Metoprolol 5 MG/5 ML VIAL IVP SCH (23:24)
[2020-01-19] MEDS: Cefepime HCl 2,000 MG in Water for inj. (sterile) 20 ML IVP SCH ×2 (00:04→12:01)
[2020-01-19] MEDS: Ipratropium/Albuterol Neb 3 ML IH SCH ×7 (00:24→23:53)
[2020-01-19] MEDS: FentaNYL (PF) 2,500 MCG/50 ML IV.SOLN IVC SCH (01:20)
[2020-01-19 04:05] LABS: ABG Base Excess 10 mEq/L (-2 to 3); ABG HCO3 35 mEq/L (21-27); ABG Oxygen Saturation 98 % (95-98); ABG PCO2 50 mmHg (35-45); ABG PH 7.45 pH Units (7.32-7.45); ABG PO2 105 mmHg (85-104); ABG TCO2 37 mEq/L (20-26); Blood Gas VT 500 cc
[2020-01-19] MEDS: Artificial Tears SOLN 15 ML BOTTLE BOTH EYES SCH ×6 (04:22→23:18)
[2020-01-19 04:34] LABS: Basophils % 0.1 %; Hematocrit 28.9 % (35.3-44.9); Hemoglobin 8.6 g/dL (11.5-15.4); Immature Granulocytes % 2.3 % (0-4); Lymphocytes # 0.8 K/mcL (0.6-4.6); Lymphocytes % 7.8 %; Mean Corpuscular HGB Conc 29.8 g/dL (31.6-35.5); Mean Corpuscular Hemoglobin 28.3 pg (28.0-33.3); Mean Corpuscular Volume 95.1 fL (83.0-100.0); Mean Platelet Volume 10.8 fL (9.4-12.4); Neutrophils # 8.7 K/mcL (1.6-8.9); Platelet Count 244 K/mcL (140-400); Red Blood Count 3.04 M/mcL (3.82-4.97); Red Cell Distribution Width 13.8 % (11.5-14.5); Segmented Neutrophils % 80.8 %; White Blood Count 10.7 K/mcL (4.3-11.1)
[2020-01-19 04:55] LABS: Calcium 9.1 mg/dL (8.6-10.3); Potassium 4.1 mEq/L (3.5-5.1)
[2020-01-19 05:20] LABS: Fluid Source for Albumin PLEURAL
[2020-01-19] MEDS: Amiodarone Premix 360 MG/200 ML BAG IVC SCH ×2 (06:07→17:10)
[2020-01-19] MEDS: MethylPREDNISolone 40 MG/ML VIAL IVP SCH ×2 (06:07→17:49)
[2020-01-19] MEDS: *HR* Heparin 5,000 UNIT/ML VIAL SQ SCH ×2 (06:07→17:49)
[2020-01-19] MEDS: Insulin LISPRO 300 UNITS/3 ML VIAL SQ SCH ×4 (06:08→23:22)
[2020-01-19] MEDS: *HR* Metoprolol 5 MG/5 ML VIAL IVP SCH (06:08)
[2020-01-19] MEDS: Budesonide/Formoterol 160/4.5 1 PUFF INH IH SCH ×2 (07:24→19:46)
[2020-01-19] MEDS: Docusate Oral Soln 100 MG/10 ML UDC GTUBE SCH ×2 (08:51→20:06)
[2020-01-19] MEDS: Pantoprazole 40 MG VIAL IVP SCH ×2 (08:51→08:52)
[2020-01-19] MEDS: Chlorhexidine Rinse 15 ML MOUTHWASH MM SCH ×2 (08:51→20:06)
[2020-01-19] MEDS: Insulin DETEMIR 100 UNIT/ML X5UNITS SQ SCH (08:52)
[2020-01-19] MEDS: Cholecalciferol (D-3) 1,000 UNIT (25MCG) TABLET PO SCH (08:52)
[2020-01-19] MEDS: Nicotine 7 MG PATCH.TD24 TD SCH (08:52)
[2020-01-19] MEDS: Aspirin 81 MG TAB.CHEW GTUBE SCH (08:52)
[2020-01-19] MEDS ORDERED: *HR* Metoprolol 5 MG/5 ML VIAL IVP ONE ×2 (13:48→15:03)
[2020-01-20] MEDS: Cefepime HCl 2,000 MG in Water for inj. (sterile) 20 ML IVP SCH ×2 (00:06→13:41)
[2020-01-20] MEDS: FentaNYL (PF) 2,500 MCG/50 ML IV.SOLN IVC SCH (01:07)
[2020-01-20] MEDS: Ipratropium/Albuterol Neb 3 ML IH SCH ×6 (03:18→23:56)
[2020-01-20 03:52] LABS: ABG Base Excess 8 mEq/L (-2 to 3); ABG HCO3 33 mEq/L (21-27); ABG Oxygen Saturation 97 % (95-98); ABG PCO2 48 mmHg (35-45); ABG PH 7.45 pH Units (7.32-7.45); ABG PO2 89 mmHg (85-104); ABG TCO2 34 mEq/L (20-26); Blood Gas VT 500 cc
[2020-01-20] MEDS: Artificial Tears SOLN 15 ML BOTTLE BOTH EYES SCH ×6 (03:59→23:42)
[2020-01-20 04:11] LABS: Basophils % 0.1 %; Eosinophils % 0.1 %; Hematocrit 31.7 % (35.3-44.9); Hemoglobin 9.5 g/dL (11.5-15.4); Immature Granulocytes % 2.3 % (0-4); Lymphocytes # 0.8 K/mcL (0.6-4.6); Mean Corpuscular Hemoglobin 28.6 pg (28.0-33.3); Mean Corpuscular Volume 95.5 fL (83.0-100.0); Mean Platelet Volume 10.9 fL (9.4-12.4); Monocytes % 8.3 %; Neutrophils # 9.5 K/mcL (1.6-8.9); Platelet Count 252 K/mcL (140-400); Red Blood Count 3.32 M/mcL (3.82-4.97); Red Cell Distribution Width 13.9 % (11.5-14.5); Segmented Neutrophils % 82.2 %; White Blood Count 11.5 K/mcL (4.3-11.1)
[2020-01-20 04:31] LABS: BUN/Creatinine Ratio 108 (6-26); Blood Urea Nitrogen 103 mg/dL (8-23); Carbon Dioxide 34 mEq/L (23-29); Chloride 116 mEq/L (98-107); Glucose 131 mg/dL (70-105); Osmolality,Calculated 356 (280-300); Sodium 156 mEq/L (136-145); eGFR For African Americans > 60 (> 60); eGFR For Non-African Americans 59 (> 60)
[2020-01-20] MEDS: MethylPREDNISolone 40 MG/ML VIAL IVP SCH ×2 (05:24→17:23)
[2020-01-20] MEDS: *HR* Heparin 5,000 UNIT/ML VIAL SQ SCH ×2 (05:24→17:23)
[2020-01-20] MEDS: Amiodarone Premix 360 MG/200 ML BAG IVC SCH (05:24)
[2020-01-20] MEDS: Insulin LISPRO 300 UNITS/3 ML VIAL SQ SCH ×4 (05:25→23:43)
[2020-01-20] MEDS: Budesonide/Formoterol 160/4.5 1 PUFF INH IH SCH ×2 (07:33→19:49)
[2020-01-20] MEDS: Docusate Oral Soln 100 MG/10 ML UDC GTUBE SCH ×2 (08:19→20:33)
[2020-01-20] MEDS: Aspirin 81 MG TAB.CHEW GTUBE SCH (08:19)
[2020-01-20] MEDS: Pantoprazole 40 MG VIAL IVP SCH (08:19)
[2020-01-20] MEDS: Chlorhexidine Rinse 15 ML MOUTHWASH MM SCH ×2 (08:19→20:33)
[2020-01-20] MEDS: Cholecalciferol (D-3) 1,000 UNIT (25MCG) TABLET PO SCH (08:19)
[2020-01-20] MEDS: Nicotine 7 MG PATCH.TD24 TD SCH (08:20)
[2020-01-20] MEDS: Insulin DETEMIR 100 UNIT/ML X5UNITS SQ SCH (08:24)
[2020-01-20] MEDS ORDERED: *HR* Metoprolol 5 MG/5 ML VIAL IVP ONE ×4 (11:22→15:09)
[2020-01-20 13:42] LABS: Bilirubin,Urine Negative (Negative); Blood,Urine Negative (Negative); Clarity,Urine Clear (Clear); Color,Urine Yellow (Yellow); Glucose,Urine (UA) Normal (Normal); Ketones,Urine Negative (Negative); Leukocyte Esterase,Urine Negative (Negative); Nitrite,Urine Negative (Negative); Protein,Urine Negative (Neg-Trace); Specific Gravity,Urine 1.026 (1.010-1.025); Urobilinogen,Urine Normal (Normal)
[2020-01-20 14:05] LABS: Sodium, Urine 32.9 mEq/L
[2020-01-20 14:16] LABS: BUN/Creatinine Ratio 108 (6-26); Blood Urea Nitrogen 105 mg/dL (8-23); Calcium 9.2 mg/dL (8.6-10.3); Carbon Dioxide 31 mEq/L (23-29); Chloride 117 mEq/L (98-107); Glucose 167 mg/dL (70-105); Magnesium 3.1 mg/dL (1.6-2.6); Osmolality,Calculated 355 (280-300); Potassium 4.1 mEq/L (3.5-5.1); Sodium 154 mEq/L (136-145); eGFR For African Americans > 60 (> 60); eGFR For Non-African Americans 57 (> 60)
[2020-01-20] MEDS: *HR* Amiodarone 200 MG TABLET PO SCH (20:33)
[2020-01-21] MEDS: Cefepime HCl 2,000 MG in Water for inj. (sterile) 20 ML IVP SCH ×2 (02:07→13:42)
[2020-01-21] MEDS: Ipratropium/Albuterol Neb 3 ML IH SCH ×6 (03:46→23:31)
[2020-01-21] MEDS: Artificial Tears SOLN 15 ML BOTTLE BOTH EYES SCH ×5 (03:59→21:09)
[2020-01-21 04:38] LABS: ABG Base Excess 8 mEq/L (-2 to 3); ABG HCO3 34 mEq/L (21-27); ABG Oxygen Saturation 98 % (95-98); ABG PCO2 52 mmHg (35-45); ABG PH 7.42 pH Units (7.32-7.45); ABG PO2 97 mmHg (85-104); ABG TCO2 35 mEq/L (20-26); Blood Gas VT 500 cc
[2020-01-21 04:53] LABS: Hematocrit 32.1 % (35.3-44.9); Hemoglobin 9.4 g/dL (11.5-15.4); Mean Corpuscular HGB Conc 29.3 g/dL (31.6-35.5); Mean Corpuscular Hemoglobin 28.5 pg (28.0-33.3); Mean Corpuscular Volume 97.3 fL (83.0-100.0); Mean Platelet Volume 11.6 fL (9.4-12.4); Platelet Count 217 K/mcL (140-400); Red Cell Distribution Width 13.8 % (11.5-14.5); White Blood Count 13.3 K/mcL (4.3-11.1)
[2020-01-21 05:04] LABS: BUN/Creatinine Ratio 107 (6-26); Blood Urea Nitrogen 109 mg/dL (8-23); Calcium 9.2 mg/dL (8.6-10.3); Carbon Dioxide 31 mEq/L (23-29); Chloride 118 mEq/L (98-107); Glucose 125 mg/dL (70-105); Osmolality,Calculated 354 (280-300); Potassium 4.4 mEq/L (3.5-5.1); Sodium 154 mEq/L (136-145); eGFR For African Americans > 60 (> 60); eGFR For Non-African Americans 54 (> 60)
[2020-01-21] MEDS: *HR* Heparin 5,000 UNIT/ML VIAL SQ SCH ×2 (05:31→21:09)
[2020-01-21] MEDS: Insulin LISPRO 300 UNITS/3 ML VIAL SQ SCH ×3 (05:31→17:43)
[2020-01-21] MEDS: MethylPREDNISolone 40 MG/ML VIAL IVP SCH ×2 (05:31→17:12)
[2020-01-21] MEDS: Budesonide/Formoterol 160/4.5 1 PUFF INH IH SCH ×2 (07:36→19:53)
[2020-01-21] MEDS: Docusate Oral Soln 100 MG/10 ML UDC GTUBE SCH ×2 (09:30→20:41)
[2020-01-21] MEDS: Aspirin 81 MG TAB.CHEW GTUBE SCH (09:30)
[2020-01-21] MEDS: Cholecalciferol (D-3) 1,000 UNIT (25MCG) TABLET PO SCH (09:30)
[2020-01-21] MEDS: *HR* Amiodarone 200 MG TABLET PO SCH ×2 (09:30→20:42)
[2020-01-21] MEDS: Chlorhexidine Rinse 15 ML MOUTHWASH MM SCH ×2 (09:30→20:41)
[2020-01-21] MEDS: Insulin DETEMIR 100 UNIT/ML X5UNITS SQ SCH (10:47)
[2020-01-21] MEDS ORDERED: Verapamil ER (24 HR) 120 MG TABLET.ER PO SCH (11:30)
[2020-01-21] MEDS: FentaNYL (PF) 2,500 MCG/50 ML IV.SOLN IVC SCH (13:03)
[2020-01-21 17:01] LABS: BUN/Creatinine Ratio 121 (6-26); Blood Urea Nitrogen 108 mg/dL (8-23); Calcium 6.8 mg/dL (8.6-10.3); Carbon Dioxide 34 mEq/L (23-29); Chloride 123 mEq/L (98-107); Glucose 151 mg/dL (70-105); Osmolality,Calculated 355 (280-300); Potassium 4.3 mEq/L (3.5-5.1); Sodium 154 mEq/L (136-145); eGFR For African Americans > 60 (> 60); eGFR For Non-African Americans > 60 (> 60)
[2020-01-21] MEDS ORDERED: Calcium Gluconate 1gm/50mL 1 GM/50 ML BAG IVPB ONE (18:14)
[2020-01-21] MEDS: D5% in Water 1,000 ML IVC SCH (18:48)
[2020-01-21 20:28] LABS: Bilirubin,Urine Negative (Negative); Blood,Urine Small (Negative); Clarity,Urine Clear (Clear); Color,Urine Yellow (Yellow); Glucose,Urine (UA) Normal (Normal); Ketones,Urine Negative (Negative); Leukocyte Esterase,Urine Small (Negative); Nitrite,Urine Negative (Negative); PH,Urine 5.5 pH Units (5.0-8.0); Protein,Urine 30 mg/dL (Neg-Trace); Specific Gravity,Urine 1.027 (1.010-1.025); Urobilinogen,Urine Normal (Normal)
[2020-01-21 20:30] LABS: Bacteria,Urine None Seen per hpf (None-Few); Hyaline Casts,Urine Few per lpf (None-Few); Squamous Epithelial Cell,Urine Many per lpf (None-Few); WBC,Urine 15-30 per hpf (0-3)
[2020-01-21 20:48] LABS: Renal Epithelial Cells,Urine Few per hpf (None-Few)
[2020-01-22] MEDS: Cefepime HCl 2,000 MG in Water for inj. (sterile) 20 ML IVP SCH (00:08)
[2020-01-22] MEDS: Artificial Tears SOLN 15 ML BOTTLE BOTH EYES SCH ×7 (00:58→23:44)
[2020-01-22] MEDS: Insulin LISPRO 300 UNITS/3 ML VIAL SQ SCH ×5 (00:58→23:44)
[2020-01-22] MEDS: Ipratropium/Albuterol Neb 3 ML IH SCH ×6 (03:53→23:54)
[2020-01-22 04:13] LABS: BUN/Creatinine Ratio 122 (6-26); Blood Urea Nitrogen 105 mg/dL (8-23); Calcium 9.2 mg/dL (8.6-10.3); Carbon Dioxide 26 mEq/L (23-29); Chloride 114 mEq/L (98-107); Glucose 226 mg/dL (70-105); Osmolality,Calculated 346 (280-300); Potassium 4.8 mEq/L (3.5-5.1); Sodium 148 mEq/L (136-145); eGFR For African Americans > 60 (> 60); eGFR For Non-African Americans > 60 (> 60)
[2020-01-22 04:29] LABS: ABG Base Excess 6 mEq/L (-2 to 3); ABG HCO3 31 mEq/L (21-27); ABG Oxygen Saturation 97 % (95-98); ABG PCO2 50 mmHg (35-45); ABG PO2 94 mmHg (85-104); ABG TCO2 33 mEq/L (20-26); Blood Gas Modality ASSIST CONTROL; Blood Gas VT 500 cc
[2020-01-22 04:32] LABS: Basophils % 0.1 %; Eosinophils # 0.1 K/mcL (0.0-0.6); Eosinophils % 0.4 %; Hematocrit 29.9 % (35.3-44.9); Hemoglobin 8.8 g/dL (11.5-15.4); Immature Granulocytes % 1.5 % (0-4); Lymphocytes # 1.2 K/mcL (0.6-4.6); Lymphocytes % 8.3 %; Mean Corpuscular HGB Conc 29.4 g/dL (31.6-35.5); Mean Corpuscular Hemoglobin 28.6 pg (28.0-33.3); Mean Corpuscular Volume 97.1 fL (83.0-100.0); Mean Platelet Volume 11.9 fL (9.4-12.4); Monocytes # 0.8 K/mcL (0.0-1.3); Monocytes % 5.6 %; Neutrophils # 11.8 K/mcL (1.6-8.9); Platelet Count 167 K/mcL (140-400); Red Blood Count 3.08 M/mcL (3.82-4.97); Red Cell Distribution Width 13.4 % (11.5-14.5); Segmented Neutrophils % 84.1 %
[2020-01-22 04:44] LABS: BUN/Creatinine Ratio 121 (6-26); Blood Urea Nitrogen 103 mg/dL (8-23); Carbon Dioxide 30 mEq/L (23-29); Chloride 113 mEq/L (98-107); Glucose 154 mg/dL (70-105); Osmolality,Calculated 337 (280-300); Potassium 4.2 mEq/L (3.5-5.1); Sodium 146 mEq/L (136-145); eGFR For African Americans > 60 (> 60); eGFR For Non-African Americans > 60 (> 60)
[2020-01-22] MEDS: MethylPREDNISolone 40 MG/ML VIAL IVP SCH ×2 (06:17→18:05)
[2020-01-22] MEDS: *HR* Heparin 5,000 UNIT/ML VIAL SQ SCH ×3 (06:17→23:44)
[2020-01-22] MEDS: Budesonide/Formoterol 160/4.5 1 PUFF INH IH SCH ×2 (07:56→20:14)
[2020-01-22] MEDS: Pantoprazole 40 MG VIAL IVP SCH (08:33)
[2020-01-22] MEDS: Chlorhexidine Rinse 15 ML MOUTHWASH MM SCH ×2 (08:33→19:54)
[2020-01-22] MEDS: Insulin DETEMIR 100 UNIT/ML X5UNITS SQ SCH (08:33)
[2020-01-22] MEDS ORDERED: Verapamil ER (24 HR) 180 MG TABLET.ER PO SCH (09:00)
[2020-01-22] MEDS: D5% in Water 1,000 ML IVC SCH ×3 (09:23→20:02)
[2020-01-22] MEDS: Aspirin 81 MG TAB.CHEW GTUBE SCH ×2 (09:47→10:48)
[2020-01-22] MEDS: Docusate Oral Soln 100 MG/10 ML UDC GTUBE SCH ×3 (09:47→19:54)
[2020-01-22] MEDS: *HR* Amiodarone 200 MG TABLET PO SCH ×3 (09:47→19:54)
[2020-01-22] MEDS: Cholecalciferol (D-3) 1,000 UNIT (25MCG) TABLET PO SCH ×2 (09:48→10:48)
[2020-01-22] MEDS: FentaNYL (PF) 2,500 MCG/50 ML IV.SOLN IVC SCH (18:05)
[2020-01-23] MEDS: Artificial Tears SOLN 15 ML BOTTLE BOTH EYES SCH ×6 (03:32→23:54)
[2020-01-23] MEDS: Ipratropium/Albuterol Neb 3 ML IH SCH ×6 (04:04→23:10)
[2020-01-23 04:58] LABS: ABG Base Excess 5 mEq/L (-2 to 3); ABG HCO3 29 mEq/L (21-27); ABG Oxygen Saturation 100 % (95-98); ABG PCO2 44 mmHg (35-45); ABG PH 7.44 pH Units (7.32-7.45); ABG PO2 161 mmHg (85-104); ABG TCO2 31 mEq/L (20-26); Blood Gas Modality AF; Blood Gas VT 500 cc
[2020-01-23] MEDS: MethylPREDNISolone 40 MG/ML VIAL IVP SCH ×2 (05:30→18:38)
[2020-01-23] MEDS: *HR* Heparin 5,000 UNIT/ML VIAL SQ SCH (05:30)
[2020-01-23] MEDS: Insulin LISPRO 300 UNITS/3 ML VIAL SQ SCH ×4 (05:30→23:53)
[2020-01-23 05:32] LABS: White Blood Count 18.6 K/mcL (4.3-11.1)
[2020-01-23 05:33] LABS: Basophils % 0.1 %; Eosinophils # 0.1 K/mcL (0.0-0.6); Eosinophils % 0.3 %; Hematocrit 31.7 % (35.3-44.9); Hemoglobin 9.9 g/dL (11.5-15.4); Immature Granulocytes % 1.3 % (0-4); Lymphocytes # 1.3 K/mcL (0.6-4.6); Mean Corpuscular HGB Conc 31.2 g/dL (31.6-35.5); Mean Corpuscular Hemoglobin 29.3 pg (28.0-33.3); Mean Corpuscular Volume 93.8 fL (83.0-100.0); Mean Platelet Volume 11.6 fL (9.4-12.4); Monocytes # 0.9 K/mcL (0.0-1.3); Monocytes % 4.7 %; Neutrophils # 16.1 K/mcL (1.6-8.9); Platelet Count 192 K/mcL (140-400); Red Blood Count 3.38 M/mcL (3.82-4.97); Red Cell Distribution Width 13.1 % (11.5-14.5); Segmented Neutrophils % 86.6 %
[2020-01-23 05:53] LABS: BUN/Creatinine Ratio 128 (6-26); Blood Urea Nitrogen 95 mg/dL (8-23); Calcium 9.1 mg/dL (8.6-10.3); Carbon Dioxide 29 mEq/L (23-29); Chloride 108 mEq/L (98-107); Glucose 234 mg/dL (70-105); Osmolality,Calculated 331 (280-300); Potassium 3.7 mEq/L (3.5-5.1); Sodium 142 mEq/L (136-145); eGFR For African Americans > 60 (> 60); eGFR For Non-African Americans > 60 (> 60)
[2020-01-23 05:54] LABS: Magnesium 2.4 mg/dL (1.6-2.6); Phosphorous 3.5 mg/dL (2.7-4.5)
[2020-01-23] MEDS: Budesonide/Formoterol 160/4.5 1 PUFF INH IH SCH ×2 (07:37→20:05)
[2020-01-23] MEDS: D5% in Water 1,000 ML IVC SCH (08:01)
[2020-01-23] MEDS: Aspirin 81 MG TAB.CHEW GTUBE SCH (08:03)
[2020-01-23] MEDS: Docusate Oral Soln 100 MG/10 ML UDC GTUBE SCH ×2 (08:03→19:57)
[2020-01-23] MEDS: Chlorhexidine Rinse 15 ML MOUTHWASH MM SCH ×2 (08:03→19:57)
[2020-01-23] MEDS: Insulin DETEMIR 100 UNIT/ML X5UNITS SQ SCH (08:03)
[2020-01-23] MEDS: *HR* Amiodarone 200 MG TABLET PO SCH ×2 (08:03→19:58)
[2020-01-23] MEDS: Cholecalciferol (D-3) 1,000 UNIT (25MCG) TABLET PO SCH (08:05)
[2020-01-23] MEDS ORDERED: Verapamil ER (24 HR) 240 MG TABLET.ER PO SCH (09:00)
[2020-01-23] MEDS ORDERED: *HR* Heparin 5,000 UNIT/ML VIAL IVP PRN ×2 (09:29)
[2020-01-23] MEDS ORDERED: *HR* Heparin 5,000 UNIT/ML VIAL IVP ONE (09:29)
[2020-01-23 10:23] LABS: Hematocrit 32.5 % (35.3-44.9); Mean Corpuscular HGB Conc 30.8 g/dL (31.6-35.5); Mean Corpuscular Hemoglobin 29.1 pg (28.0-33.3); Mean Corpuscular Volume 94.5 fL (83.0-100.0); Mean Platelet Volume 11.7 fL (9.4-12.4); Platelet Count 219 K/mcL (140-400); Red Blood Count 3.44 M/mcL (3.82-4.97); Red Cell Distribution Width 13.2 % (11.5-14.5); White Blood Count 21.5 K/mcL (4.3-11.1)
[2020-01-23 10:34] LABS: Heparin anti-factor XA UFH 0.06 IU/mL (0.30-0.70); Prothrombin Time 11.6 Seconds (9.4-12.1)
[2020-01-23] MEDS: Heparin 25,000 UNIT/250 ML D5W 25,000 UNIT/250 ML IV.SOLN IVC SCH (10:57)
[2020-01-23] MEDS ORDERED: Albuterol 2.5 MG/3 ML NEBULIZER IH PRN (11:32)
[2020-01-23] MEDS ORDERED: *HR* FentaNYL (PF) 100 MCG/2 ML VIAL IVP ONE (13:42)
[2020-01-23] MEDS: Dexmedetomidine HCl 400 MCG/100 ML MLS IVC SCH (15:39)
[2020-01-23] MEDS ORDERED: *HR* Midazolam HCl 2 MG/2 ML VIAL IVP ONE (21:49)
[2020-01-24] MEDS: Dexmedetomidine HCl 400 MCG/100 ML MLS IVC SCH ×4 (00:10→22:11)
[2020-01-24 01:39] LABS: Basophils % 0.1 %; Eosinophils % 0.2 %; Hematocrit 30.7 % (35.3-44.9); Hemoglobin 9.2 g/dL (11.5-15.4); Immature Granulocytes % 1.3 % (0-4); Lymphocytes # 0.4 K/mcL (0.6-4.6); Lymphocytes % 2.7 %; Mean Corpuscular Hemoglobin 28.7 pg (28.0-33.3); Mean Corpuscular Volume 95.6 fL (83.0-100.0); Mean Platelet Volume 11.9 fL (9.4-12.4); Monocytes # 0.4 K/mcL (0.0-1.3); Monocytes % 2.6 %; Neutrophils # 14.9 K/mcL (1.6-8.9); Platelet Count 157 K/mcL (140-400); Red Blood Count 3.21 M/mcL (3.82-4.97); Red Cell Distribution Width 13.1 % (11.5-14.5); Segmented Neutrophils % 93.1 %
[2020-01-24] MEDS ORDERED: *HR* FentaNYL (PF) 100 MCG/2 ML VIAL IVP ONE (01:53)
[2020-01-24 02:03] LABS: BUN/Creatinine Ratio 104 (6-26); Blood Urea Nitrogen 76 mg/dL (8-23); Calcium 8.7 mg/dL (8.6-10.3); Carbon Dioxide 30 mEq/L (23-29); Chloride 108 mEq/L (98-107); Glucose 257 mg/dL (70-105); Osmolality,Calculated 321 (280-300); Potassium 5.5 mEq/L (3.5-5.1); Sodium 140 mEq/L (136-145); eGFR For African Americans > 60 (> 60); eGFR For Non-African Americans > 60 (> 60)
[2020-01-24] MEDS: Ipratropium/Albuterol Neb 3 ML IH SCH ×5 (03:37→19:41)
[2020-01-24] MEDS: Artificial Tears SOLN 15 ML BOTTLE BOTH EYES SCH ×5 (04:14→20:51)
[2020-01-24] MEDS: MethylPREDNISolone 40 MG/ML VIAL IVP SCH (05:13)
[2020-01-24] MEDS: Insulin LISPRO 300 UNITS/3 ML VIAL SQ SCH ×3 (05:13→17:19)
[2020-01-24] MEDS: Budesonide/Formoterol 160/4.5 1 PUFF INH IH SCH ×2 (07:14→19:41)
[2020-01-24] MEDS: Chlorhexidine Rinse 15 ML MOUTHWASH MM SCH ×2 (08:02→20:51)
[2020-01-24] MEDS: Aspirin 81 MG TAB.CHEW GTUBE SCH (08:03)
[2020-01-24] MEDS: *HR* Amiodarone 200 MG TABLET PO SCH (08:03)
[2020-01-24] MEDS: Insulin DETEMIR 100 UNIT/ML X5UNITS SQ SCH ×2 (08:04→20:45)
[2020-01-24] MEDS: Docusate Oral Soln 100 MG/10 ML UDC GTUBE SCH ×2 (08:04→20:37)
[2020-01-24] MEDS: Cholecalciferol (D-3) 1,000 UNIT (25MCG) TABLET PO SCH (08:06)
[2020-01-24] MEDS: Heparin 25,000 UNIT/250 ML D5W 25,000 UNIT/250 ML IV.SOLN IVC SCH ×2 (08:09→14:26)
[2020-01-24 09:58] LABS: ABG HCO3 31 mEq/L (21-27); ABG Oxygen Saturation 98 % (95-98); ABG PCO2 50 mmHg (35-45); ABG PO2 110 mmHg (85-104); ABG TCO2 6 mEq/L (20-26)
[2020-01-24 10:53] LABS: Chol/HDL Ratio 3.2 (0-4.9); Cholesterol 105 mg/dL (< 200); HDL Cholesterol 33 mg/dL (40-59); LDL Cholesterol,Calculated 53 mg/dL (0-99); Triglycerides 96 mg/dL (< 150)
[2020-01-24 14:17] LABS: ABG Base Excess 6 mEq/L (-2 to 3); ABG HCO3 30 mEq/L (21-27); ABG Oxygen Saturation 98 % (95-98); ABG PCO2 44 mmHg (35-45); ABG PH 7.45 pH Units (7.32-7.45); ABG PO2 97 mmHg (85-104); ABG TCO2 32 mEq/L (20-26); Blood Gas Modality CPAP/PS; Blood Gas Pressure Support 8 cm H2O
[2020-01-25] MEDS: Ipratropium/Albuterol Neb 3 ML IH SCH ×6 (00:14→20:02)
[2020-01-25] MEDS: Artificial Tears SOLN 15 ML BOTTLE BOTH EYES SCH ×7 (00:25→23:43)
[2020-01-25] MEDS: Insulin LISPRO 300 UNITS/3 ML VIAL SQ SCH ×5 (00:27→23:54)
[2020-01-25 01:06] LABS: Basophils % 0.1 %; Eosinophils # 0.1 K/mcL (0.0-0.6); Eosinophils % 0.9 %; Hematocrit 28.9 % (35.3-44.9); Immature Granulocytes % 1.2 % (0-4); Lymphocytes % 8.6 %; Mean Corpuscular HGB Conc 31.1 g/dL (31.6-35.5); Mean Corpuscular Hemoglobin 28.8 pg (28.0-33.3); Mean Corpuscular Volume 92.3 fL (83.0-100.0); Mean Platelet Volume 12.7 fL (9.4-12.4); Monocytes # 0.6 K/mcL (0.0-1.3); Monocytes % 4.8 %; Neutrophils # 10.2 K/mcL (1.6-8.9); Platelet Count 159 K/mcL (140-400); Red Blood Count 3.13 M/mcL (3.82-4.97); Red Cell Distribution Width 13.2 % (11.5-14.5); Segmented Neutrophils % 84.4 %
[2020-01-25 01:23] LABS: BUN/Creatinine Ratio 106 (6-26); Blood Urea Nitrogen 72 mg/dL (8-23); Calcium 8.9 mg/dL (8.6-10.3); Carbon Dioxide 29 mEq/L (23-29); Chloride 109 mEq/L (98-107); Glucose 144 mg/dL (70-105); Osmolality,Calculated 318 (280-300); Potassium 4.2 mEq/L (3.5-5.1); Sodium 142 mEq/L (136-145); eGFR For African Americans > 60 (> 60); eGFR For Non-African Americans > 60 (> 60)
[2020-01-25] MEDS: Dexmedetomidine HCl 400 MCG/100 ML MLS IVC SCH ×2 (05:16→13:08)
[2020-01-25] MEDS: Budesonide/Formoterol 160/4.5 1 PUFF INH IH SCH ×2 (07:35→20:03)
[2020-01-25] MEDS: Chlorhexidine Rinse 15 ML MOUTHWASH MM SCH ×2 (08:25→21:01)
[2020-01-25] MEDS: Insulin DETEMIR 100 UNIT/ML X5UNITS SQ SCH ×2 (08:28→20:59)
[2020-01-25] MEDS: MethylPREDNISolone 40 MG/ML VIAL IVP SCH (08:29)
[2020-01-25] MEDS: *HR* Amiodarone 200 MG TABLET PO SCH (09:29)
[2020-01-25] MEDS: Docusate Oral Soln 100 MG/10 ML UDC GTUBE SCH ×2 (09:29→21:01)
[2020-01-25] MEDS: Aspirin 81 MG TAB.CHEW GTUBE SCH (09:29)
[2020-01-25] MEDS: Cholecalciferol (D-3) 1,000 UNIT (25MCG) TABLET PO SCH (09:30)
[2020-01-25] MEDS ORDERED: Amiodarone Premix 150 MG/100 ML BAG IVPB ONE (15:09)
[2020-01-25] MEDS: Amiodarone Premix 360 MG/200 ML BAG IVC SCH (16:02)
[2020-01-25] MEDS: Heparin 25,000 UNIT/250 ML D5W 25,000 UNIT/250 ML IV.SOLN IVC SCH (16:42)
[2020-01-25] MEDS: *HR* Metoprolol 5 MG/5 ML VIAL IVP SCH ×2 (19:01→23:43)
[2020-01-26] MEDS: Ipratropium/Albuterol Neb 3 ML IH SCH ×4 (00:01→11:38)
[2020-01-26] MEDS: Dexmedetomidine HCl 400 MCG/100 ML MLS IVC SCH ×2 (00:10→05:31)
[2020-01-26 01:14] LABS: Basophils % 0.1 %; Eosinophils # 0.1 K/mcL (0.0-0.6); Eosinophils % 0.4 %; Hematocrit 28.8 % (35.3-44.9); Hemoglobin 9.1 g/dL (11.5-15.4); Immature Granulocytes % 1.1 % (0-4); Lymphocytes # 0.8 K/mcL (0.6-4.6); Lymphocytes % 4.8 %; Mean Corpuscular HGB Conc 31.6 g/dL (31.6-35.5); Mean Corpuscular Hemoglobin 29.1 pg (28.0-33.3); Mean Platelet Volume 12.5 fL (9.4-12.4); Monocytes # 0.6 K/mcL (0.0-1.3); Monocytes % 3.7 %; Neutrophils # 14.4 K/mcL (1.6-8.9); Platelet Count 136 K/mcL (140-400); Red Blood Count 3.13 M/mcL (3.82-4.97); Red Cell Distribution Width 13.4 % (11.5-14.5); Segmented Neutrophils % 89.9 %
[2020-01-26 01:34] LABS: BUN/Creatinine Ratio 104 (6-26); Blood Urea Nitrogen 53 mg/dL (8-23); Calcium 8.4 mg/dL (8.6-10.3); Carbon Dioxide 27 mEq/L (23-29); Chloride 108 mEq/L (98-107); Glucose 159 mg/dL (70-105); Osmolality,Calculated 310 (280-300); Potassium 3.9 mEq/L (3.5-5.1); Sodium 141 mEq/L (136-145); eGFR For African Americans > 60 (> 60); eGFR For Non-African Americans > 60 (> 60)
[2020-01-26] MEDS: Amiodarone Premix 360 MG/200 ML BAG IVC SCH ×2 (03:11→13:43)
[2020-01-26] MEDS: Artificial Tears SOLN 15 ML BOTTLE BOTH EYES SCH ×2 (04:00→08:47)
[2020-01-26] MEDS: *HR* Metoprolol 5 MG/5 ML VIAL IVP SCH ×4 (05:46→23:32)
[2020-01-26] MEDS: Insulin LISPRO 300 UNITS/3 ML VIAL SQ SCH ×4 (05:46→23:37)
[2020-01-26] MEDS: Budesonide/Formoterol 160/4.5 1 PUFF INH IH SCH ×2 (08:05→20:08)
[2020-01-26] MEDS: Aspirin 81 MG TAB.CHEW GTUBE SCH (08:48)
[2020-01-26] MEDS: Docusate Oral Soln 100 MG/10 ML UDC GTUBE SCH (09:12)
[2020-01-26] MEDS: Chlorhexidine Rinse 15 ML MOUTHWASH MM SCH (09:14)
[2020-01-26] MEDS: Insulin DETEMIR 100 UNIT/ML X5UNITS SQ SCH ×2 (09:14→20:06)
[2020-01-26] MEDS: Cholecalciferol (D-3) 1,000 UNIT (25MCG) TABLET PO SCH (09:16)
[2020-01-26] MEDS: MethylPREDNISolone 40 MG/ML VIAL IVP SCH (09:26)
[2020-01-26 10:38] LABS: Bilirubin,Urine Negative (Negative); Blood,Urine Large (Negative); Clarity,Urine Cloudy (Clear); Color,Urine Dark Yellow (Yellow); Glucose,Urine (UA) Normal (Normal); Ketones,Urine Negative (Negative); Leukocyte Esterase,Urine Small (Negative); Nitrite,Urine Negative (Negative); PH,Urine 5.5 pH Units (5.0-8.0); Protein,Urine 100 mg/dL (Neg-Trace); Specific Gravity,Urine 1.028 (1.010-1.025); Urobilinogen,Urine Normal (Normal)
[2020-01-26 10:42] LABS: Bacteria,Urine None Seen per hpf (None-Few); Hyaline Casts,Urine None Seen per lpf (None-Few); RBC,Urine TNTC per hpf (0-3); Squamous Epithelial Cell,Urine Many per lpf (None-Few); WBC,Urine 30-50 per hpf (0-3)
[2020-01-26] MEDS ORDERED: Ondansetron ODT 4 MG TAB.RAPDIS SL PRN (10:51)
[2020-01-26] MEDS ORDERED: Ipratropium/Albuterol Neb 3 ML IH PRN (11:42)
[2020-01-26] MEDS ORDERED: Haloperidol Lactate 5 MG/ML VIAL IVP ONE (12:33)
[2020-01-27] MEDS: *HR* Metoprolol 5 MG/5 ML VIAL IVP SCH ×4 (05:27→23:22)
[2020-01-27] MEDS: Insulin LISPRO 300 UNITS/3 ML VIAL SQ SCH ×4 (05:29→23:22)
[2020-01-27] MEDS: Insulin DETEMIR 100 UNIT/ML X5UNITS SQ SCH ×2 (08:02→20:12)
[2020-01-27] MEDS: *HR* Amiodarone 200 MG TABLET PO SCH ×3 (08:14→20:12)
[2020-01-27] MEDS: Aspirin 81 MG TAB.CHEW PO SCH (08:14)
[2020-01-27] MEDS: MethylPREDNISolone 40 MG/ML VIAL IVP SCH (08:16)
[2020-01-27] MEDS: Potassium Chloride Elixir 20 MEQ/15 ML UDC PO SCH (08:17)
[2020-01-27 09:05] LABS: Eosinophils # 0.1 K/mcL (0.0-0.6); Eosinophils % 0.3 %; Hematocrit 36.4 % (35.3-44.9); Immature Granulocytes % 0.7 % (0-4); Lymphocytes # 0.8 K/mcL (0.6-4.6); Lymphocytes % 3.6 %; Mean Corpuscular HGB Conc 30.8 g/dL (31.6-35.5); Mean Corpuscular Hemoglobin 28.6 pg (28.0-33.3); Mean Corpuscular Volume 93.1 fL (83.0-100.0); Mean Platelet Volume 12.6 fL (9.4-12.4); Monocytes # 0.6 K/mcL (0.0-1.3); Monocytes % 2.7 %; Neutrophils # 20.4 K/mcL (1.6-8.9); Platelet Count 205 K/mcL (140-400); Red Blood Count 3.91 M/mcL (3.82-4.97); Red Cell Distribution Width 14.2 % (11.5-14.5); Segmented Neutrophils % 92.7 %
[2020-01-27 09:07] LABS: VBG HCO3 28 mEq/L (21-27); VBG PCO2 48 mmHg (41-51); VBG PH 7.38 pH Units (7.32-7.42); VBG PO2 61 mmHg (25-50)
[2020-01-27 09:19] LABS: Hemoglobin 11.2 g/dL (11.5-15.4)
[2020-01-27 09:22] LABS: BUN/Creatinine Ratio 63 (6-26); Blood Urea Nitrogen 33 mg/dL (8-23); Calcium 8.6 mg/dL (8.6-10.3); Carbon Dioxide 29 mEq/L (23-29); Chloride 107 mEq/L (98-107); Glucose 172 mg/dL (70-105); Magnesium 2.3 mg/dL (1.6-2.6); Osmolality,Calculated 303 (280-300); Phosphorous 3.5 mg/dL (2.7-4.5); Potassium 4.4 mEq/L (3.5-5.1); Sodium 141 mEq/L (136-145); eGFR For African Americans > 60 (> 60); eGFR For Non-African Americans > 60 (> 60)
[2020-01-27] MEDS: Budesonide/Formoterol 160/4.5 1 PUFF INH IH SCH ×2 (11:30→23:33)
[2020-01-27] MEDS: *HR* Heparin 5,000 UNIT/ML VIAL SQ SCH ×2 (12:16→18:19)
[2020-01-27] MEDS: Pantoprazole 40 MG VIAL IVP SCH (12:16)
[2020-01-27] MEDS ORDERED: E-Z-PAQUE (BARIUM SULF) SUSP 1 BOTTLE PO ONE (15:53)
[2020-01-27] MEDS ORDERED: E-Z-HD (BARIUM SULF) SUSPENSION PO ONE (15:53)
[2020-01-28] MEDS: Insulin LISPRO 300 UNITS/3 ML VIAL SQ SCH ×4 (05:44→21:09)
[2020-01-28] MEDS: *HR* Heparin 5,000 UNIT/ML VIAL SQ SCH ×2 (05:45→17:57)
[2020-01-28] MEDS: *HR* Metoprolol 5 MG/5 ML VIAL IVP SCH (05:45)
[2020-01-28 07:18] LABS: Hematocrit 32.6 % (35.3-44.9); Hemoglobin 10.4 g/dL (11.5-15.4); Mean Corpuscular HGB Conc 31.9 g/dL (31.6-35.5); Mean Corpuscular Hemoglobin 29.8 pg (28.0-33.3); Mean Corpuscular Volume 93.4 fL (83.0-100.0); Mean Platelet Volume 12.7 fL (9.4-12.4); Platelet Count 206 K/mcL (140-400); Red Blood Count 3.49 M/mcL (3.82-4.97); Red Cell Distribution Width 14.7 % (11.5-14.5); White Blood Count 19.7 K/mcL (4.3-11.1)
[2020-01-28 07:33] LABS: BUN/Creatinine Ratio 69 (6-26); Blood Urea Nitrogen 37 mg/dL (8-23); Calcium 8.7 mg/dL (8.6-10.3); Carbon Dioxide 26 mEq/L (23-29); Chloride 110 mEq/L (98-107); Glucose 134 mg/dL (70-105); Osmolality,Calculated 305 (280-300); Potassium 4.2 mEq/L (3.5-5.1); Sodium 142 mEq/L (136-145); eGFR For African Americans > 60 (> 60); eGFR For Non-African Americans > 60 (> 60)
[2020-01-28] MEDS: Aspirin 81 MG TAB.CHEW PO SCH (07:54)
[2020-01-28] MEDS: *HR* Amiodarone 200 MG TABLET PO SCH ×2 (07:54→21:06)
[2020-01-28] MEDS: Pantoprazole 40 MG VIAL IVP SCH (07:54)
[2020-01-28] MEDS: MethylPREDNISolone 40 MG/ML VIAL IVP SCH (07:54)
[2020-01-28] MEDS: Insulin DETEMIR 100 UNIT/ML X5UNITS SQ SCH ×2 (08:07→21:08)
[2020-01-28] MEDS: Potassium Chloride Elixir 20 MEQ/15 ML UDC PO SCH (08:08)
[2020-01-28] MEDS: Budesonide/Formoterol 160/4.5 1 PUFF INH IH SCH ×2 (10:24→21:52)
[2020-01-28] MEDS ORDERED: Acetaminophen 325 MG TABLET PO PRN (10:26)
[2020-01-28] MEDS ORDERED: Dextrose Gel 15 GM/37.5 ML TUBE PO PRN ×2 (10:26)
[2020-01-28] MEDS ORDERED: Ondansetron ODT 4 MG TAB.RAPDIS SL PRN (10:26)
[2020-01-28] MEDS ORDERED: *HR* Dextrose 50 % in Water (Syg) 50 ML SYRINGE IVP PRN (10:26)
[2020-01-28] MEDS ORDERED: Albuterol 2.5 MG/3 ML NEBULIZER IH PRN (10:26)
[2020-01-28] MEDS ORDERED: Naloxone 0.4 MG/ML INJ IVP PRN (10:26)
[2020-01-28] MEDS ORDERED: allopurinoL 100 MG TABLET PO PRN (10:26)
[2020-01-28] MEDS ORDERED: Ipratropium/Albuterol Neb 3 ML IH PRN (10:26)
[2020-01-28 11:47] LABS: ABG Base Excess 6 mEq/L (-2 to 3); ABG HCO3 31 mEq/L (21-27); ABG Oxygen Saturation 98 % (95-98); ABG PCO2 50 mmHg (35-45); ABG PO2 110 mmHg (85-104); ABG TCO2 33 mEq/L (20-26); Blood Gas Modality ASSIST CONTROL; Blood Gas VT 450 cc
[2020-01-28] MEDS ORDERED: Metoprolol 100 MG TABLET PO SCH (21:00)
[2020-01-28] MEDS: Metoprolol 100 MG TABLET PO SCH (21:23)
[2020-01-29 02:11] LABS: Basophils % 0.1 %; Eosinophils # 0.1 K/mcL (0.0-0.6); Eosinophils % 0.4 %; Hematocrit 32.1 % (35.3-44.9); Immature Granulocytes % 0.6 % (0-4); Lymphocytes # 0.9 K/mcL (0.6-4.6); Mean Corpuscular HGB Conc 31.2 g/dL (31.6-35.5); Mean Corpuscular Hemoglobin 29.4 pg (28.0-33.3); Mean Corpuscular Volume 94.4 fL (83.0-100.0); Mean Platelet Volume 12.4 fL (9.4-12.4); Monocytes # 0.5 K/mcL (0.0-1.3); Platelet Count 196 K/mcL (140-400); Red Cell Distribution Width 14.7 % (11.5-14.5); Segmented Neutrophils % 90.9 %; White Blood Count 17.6 K/mcL (4.3-11.1)
[2020-01-29 02:32] LABS: BUN/Creatinine Ratio 80 (6-26); Blood Urea Nitrogen 35 mg/dL (8-23); Calcium 8.6 mg/dL (8.6-10.3); Carbon Dioxide 23 mEq/L (23-29); Chloride 110 mEq/L (98-107); Glucose 113 mg/dL (70-105); Osmolality,Calculated 299 (280-300); Potassium 4.4 mEq/L (3.5-5.1); Sodium 140 mEq/L (136-145); eGFR For African Americans > 60 (> 60); eGFR For Non-African Americans > 60 (> 60)
[2020-01-29] MEDS: *HR* Heparin 5,000 UNIT/ML VIAL SQ SCH (06:27)
[2020-01-29] MEDS: Insulin LISPRO 300 UNITS/3 ML VIAL SQ SCH ×4 (07:56→23:13)
[2020-01-29] MEDS: amLODIPine 5 MG TABLET PO SCH (09:50)
[2020-01-29] MEDS: Cholecalciferol (D-3) 1,000 UNIT (25MCG) TABLET PO SCH (09:50)
[2020-01-29] MEDS: *HR* Amiodarone 200 MG TABLET PO SCH ×2 (09:50→20:53)
[2020-01-29] MEDS: Metoprolol 100 MG TABLET PO SCH ×2 (09:50→20:53)
[2020-01-29] MEDS: Aspirin 81 MG TAB.CHEW PO SCH (09:50)
[2020-01-29] MEDS: Insulin DETEMIR 100 UNIT/ML X5UNITS SQ SCH ×2 (09:50→20:59)
[2020-01-29] MEDS: Furosemide 40 MG TABLET PO SCH (09:50)
[2020-01-29] MEDS: Pantoprazole 40 MG VIAL IVP SCH (09:51)
[2020-01-29] MEDS: *HR* Dabigatran 150 MG CAPSULE PO SCH ×2 (09:52→20:53)
[2020-01-29] MEDS: Potassium Chloride Elixir 20 MEQ/15 ML UDC PO SCH (09:53)
[2020-01-29] MEDS: Budesonide/Formoterol 160/4.5 1 PUFF INH IH SCH ×2 (10:10→22:51)
[2020-01-30 03:58] LABS: Basophils % 0.5 %; Hematocrit 31.4 % (35.3-44.9); Hemoglobin 9.6 g/dL (11.5-15.4); Immature Granulocytes % 2.1 % (0-4); Mean Corpuscular HGB Conc 30.6 g/dL (31.6-35.5); Mean Corpuscular Hemoglobin 28.9 pg (28.0-33.3); Mean Corpuscular Volume 94.6 fL (83.0-100.0); Platelet Count 161 K/mcL (140-400); Red Blood Count 3.32 M/mcL (3.82-4.97); Red Cell Distribution Width 14.9 % (11.5-14.5)
[2020-01-30 04:00] LABS: Basophils # 0.1 K/mcL (0.0-0.2); Eosinophils # 0.2 K/mcL (0.0-0.6); Eosinophils % 1.4 %; Immature Platelets 13.6 % (1.1-6.1); Mean Platelet Volume 13.5 fL (9.4-12.4); Monocytes # 0.4 K/mcL (0.0-1.3); Monocytes % 3.1 %; Nucleated Red Blood Cells 0.2 /100 WBC (0); Segmented Neutrophils % 81.9 %; White Blood Count 13.1 K/mcL (4.3-11.1)
[2020-01-30 04:02] LABS: Lymphocytes # 1.4 K/mcL (0.6-4.6); Neutrophils # 10.7 K/mcL (1.6-8.9)
[2020-01-30 04:14] LABS: BUN/Creatinine Ratio 84 (6-26); Blood Urea Nitrogen 38 mg/dL (8-23); Calcium 8.3 mg/dL (8.6-10.3); Carbon Dioxide 24 mEq/L (23-29); Chloride 109 mEq/L (98-107); Glucose 89 mg/dL (70-105); Osmolality,Calculated 297 (280-300); Potassium 4.5 mEq/L (3.5-5.1); Sodium 139 mEq/L (136-145); eGFR For African Americans > 60 (> 60); eGFR For Non-African Americans > 60 (> 60)
[2020-01-30] MEDS: Insulin LISPRO 300 UNITS/3 ML VIAL SQ SCH ×2 (07:47→11:51)
[2020-01-30] MEDS ORDERED: *HR* Amiodarone 200 MG TABLET PO SCH (09:00)
[2020-01-30] MEDS: Cholecalciferol (D-3) 1,000 UNIT (25MCG) TABLET PO SCH (09:12)
[2020-01-30] MEDS: amLODIPine 5 MG TABLET PO SCH (09:12)
[2020-01-30] MEDS: *HR* Dabigatran 150 MG CAPSULE PO SCH (09:12)
[2020-01-30] MEDS: Pantoprazole 40 MG VIAL IVP SCH (09:12)
[2020-01-30] MEDS: Aspirin 81 MG TAB.CHEW PO SCH (09:13)
[2020-01-30] MEDS: Furosemide 40 MG TABLET PO SCH (09:13)
[2020-01-30] MEDS: Insulin DETEMIR 100 UNIT/ML X5UNITS SQ SCH (09:14)
[2020-01-30] MEDS: Potassium Chloride Elixir 20 MEQ/15 ML UDC PO SCH (09:17)
[2020-01-30] MEDS: Budesonide/Formoterol 160/4.5 1 PUFF INH IH SCH (10:43)
[2020-01-30 11:41] VITALS: BP 133/77
[2020-01-30] MEDS ORDERED: *HR* OxyCODONE/APAP 5/325 TABLET PO PRN (12:35)
== END 2020-01-30 15:28 | DRG 233 ==
LOC: 3BNU → ICNU 01-10 07:37 → 2NNU 01-28 11:18
PROVIDERS: ADMIT Family Medicine; ATTEND Family Medicine
PROC: ENDOBRF (2020-01-17 13:30)